=== PATIENT | male | born 1950 | race Caucasian/White ===

== ENCOUNTER 2016-10-23 10:28 | Inpatient (IN) | payer OTHER, MEDICARE ==
[~2016-10-23 10:28] MED LIST: 1-ME1LIQ PO; ADVAI250I PO; ATRO17AE INH; CLON1TAB PO; COUM5TAB PO; CYAN25003 PO; DIGO0.12 PO; FEXO180 PO; FIBE625T24 PO; FURO1TAB93 PO; GEMF600T PO; GLUC1000 PO; HYDR10SO PO; HYDR25TA35 PO; METO25 PO; OMEG5CAP PO; PACE200T4 PO; PRAV40 PO; PROT40TA PO; QUIN20TA22 PO; STOO100T PO; VITA500015 PO; VITA80005 PO; Z.0.COMMODE-3:1; Z.0.CPM; Z.0.WALKERFRONT
[2016-10-24 10:30] VITALS: BP 122/55; PULSE 58; RESP 20; TEMP 98.7; O2SAT 98
[2016-10-24] MEDS ORDERED: SODIUM CHLORID 0.9% 500 ML IV PRN (10:45)
[2016-10-24] MEDS ORDERED: CHLORHEXIDINE GLUCONATE 2 % 1 PACK (2 CLOTHS) TOPICAL PRN (10:45)
[2016-10-24] MEDS ORDERED: LACTATED RINGER'S 1000 ML IV PRN (10:45)
[2016-10-24] MEDS ORDERED: CHLORHEXIDINE GLUCONATE 4% SOLN 120 ML BTL TOPICAL SCH (10:45)
[2016-10-24] MEDS ORDERED: INSULIN HUMAN REGULAR 1,000 UNITS/10 ML VIAL SQ PRN (10:45)
[2016-10-24] MEDS ORDERED: POVIDONE IODINE 5% (ANTISEPSIS KIT) 4 APPLICATIONS EACH NARE PRN (10:45)
[2016-10-24] MEDS ORDERED: VANCOMYCIN 1000 MG/NS 250 ML (for <70 kg) IV SCH ×2 (10:45)
[2016-10-24] MEDS ORDERED: METOPROLOL TARTRATE 25 MG TAB PO PRN (10:45)
[2016-10-24] MEDS ORDERED: D32000TA PO (11:06)
[2016-10-24] MEDS ORDERED: CYAN1TAB24 PO (11:06)
[2016-10-24] MEDS ORDERED: QUIN40TA2 PO (11:06)
[2016-10-24] MEDS ORDERED: FENO160T PO (11:06)
[2016-10-24] MEDS ORDERED: FURO40TA PO (11:06)
[2016-10-24] MEDS ORDERED: VITA10006 PO (11:06)
[2016-10-24] MEDS ORDERED: IPRASOL INH (11:06)
[2016-10-24] MEDS ORDERED: HYDR-3366 PO (11:06)
[2016-10-24] MEDS ORDERED: ATOR1TAB18 PO (11:06)
[2016-10-24] MEDS ORDERED: METO50TA PO (11:06)
[2016-10-24] MEDS ORDERED: AMLO10 PO (11:06)
[2016-10-24] MEDS ORDERED: VITA80005 PO (11:06)
[2016-10-24] MEDS ORDERED: CLON0.1T PO (11:06)
[2016-10-24] MEDS ORDERED: HYDR-3801 PO (11:06)
[2016-10-24] MEDS ORDERED: LORA10TA PO (11:06)
[2016-10-24] MEDS ORDERED: DIGO0.12 PO (11:06)
[2016-10-24] MEDS ORDERED: FEXO15TA PO (11:06)
[2016-10-24] MEDS ORDERED: PACE200T PO (11:06)
[2016-10-24] MEDS ORDERED: STOO100C PO (11:06)
[2016-10-24] MEDS ORDERED: NEOM0.1S4 EACH EYE (11:06)
[2016-10-24] MEDS ORDERED: FIBE625T10 PO (11:06)
[2016-10-24] MEDS ORDERED: METF1000 PO (11:06)
[2016-10-24] MEDS ORDERED: FOLI5CAP PO (11:06)
[2016-10-24] MEDS ORDERED: PANT40TA3 PO (11:06)
[2016-10-24] MEDS ORDERED: ASPI325T PO (11:06)
[2016-10-24] MEDS ORDERED: TIZA4TAB PO (11:06)
[2016-10-24] MEDS ORDERED: CLON1TAB PO (11:06)
[2016-10-24] MEDS ORDERED: ASCO500C PO (11:06)
[2016-10-24] MEDS ORDERED: FERR1TAB58 PO (11:06)
[2016-10-24] MEDS ORDERED: FISH120014 PO (11:06)
[2016-10-24] MEDS ORDERED: ACET500C PO (11:06)
[2016-10-24] MEDS ORDERED: AMLO10TA2 PO (11:06)
[2016-10-24] MEDS ORDERED: IPRA17I INH (11:06)
[2016-10-24] MEDS ORDERED: ADVA250A INH (11:06)
[2016-10-24] MEDS ORDERED: GENTAMICIN SULFATE 80 MG/2 ML VIAL ONE (11:54)
[2016-10-24] MEDS ORDERED: PROPOFOL 200 MG/20 ML AMP IV ONE (12:00)
[2016-10-24] MEDS ORDERED: LACTATED RINGER'S 1000 ML INJ 2,000 ML IV ONE (12:00)
[2016-10-24] MEDS ORDERED: ONDANSETRON HCL 4 MG/2 ML VIAL IV PUSH ONE (12:00)
[2016-10-24] MEDS ORDERED: NEOSTIGMINE 3 MG/3 ML SYR IV ONE (12:00)
[2016-10-24] MEDS ORDERED: ePHEDrine/NS 25 MG/5 ML SYR IV ONE (12:00)
[2016-10-24] MEDS ORDERED: DEXAMETHASONE SOD PHOS 4 MG/ML VIAL ONE (12:09)
[2016-10-24] MEDS ORDERED: FAMOTIDINE 20 MG/2 ML VIAL ONE (12:09)
[2016-10-24] MEDS ORDERED: METOCLOPRAMIDE HCL 10 MG/2 ML VIAL ONE (12:09)
[2016-10-24] MEDS ORDERED: MIDAZOLAM HCL 2 MG/2 ML VIAL IV PUSH ONE (12:16)
[2016-10-24] MEDS ORDERED: MIDAZOLAM HCL 2 MG/2 ML VIAL ONE (12:18)
[2016-10-24] MEDS ORDERED: fentaNYL CITRATE 250 MCG/5 ML AMP ONE ×2 (12:51→16:11)
[2016-10-24] MEDS ORDERED: ACETAMINOPHEN/HYDROcodone 325 MG/10 MG TAB PO PRN (16:30)
[2016-10-24] MEDS ORDERED: MORPHINE SULFATE 8 MG/ML INJ IM PRN (16:30)
[2016-10-24] MEDS: LACTATED RINGER'S 1000 ML INJ 1,000 ML IV SCH (16:30)
[2016-10-24] MEDS ORDERED: SODIUM CHLORIDE 0.9% FLUSH 5 ML FLUSH IVF PRN (16:30)
[2016-10-24] MEDS ORDERED: ALUMINUM/MAGNESIUM/SIMETH 30 ML CUP PO PRN (16:30)
[2016-10-24] MEDS ORDERED: ONDANSETRON HCL 4 MG/2 ML VIAL IVP PRN (16:30)
[2016-10-24] MEDS ORDERED: Post-op Orders (for Pharmacy) MISC XX ONE (16:30)
[2016-10-24] MEDS ORDERED: FUROSEMIDE 40 MG TAB PO PRN (16:30)
[2016-10-24] MEDS ORDERED: ZOLPIDEM TARTRATE 5 MG TAB PO PRN (16:30)
--- NOTE | 2016-10-24 16:30 | HHI.PR ---
Immediate Post Op Note Procedure Date: October 24, 2016 Pre Op Diagnosis: L Hip OA; Morbid obesity Post Op Diagnosis: Same Surgeon: Anoop Rodrigez MD Emissions Engineer(s): Beatriz Galindo PA-C Procedure: L THR Complications: None Specimen(s) removed: None Estimated blood loss: 275cc Anesthesia: General Patient to: PACU Patient Condition: Good Implant/Devices: SEE IMPLANT LOG (if applicable) Date/Time of Procedure: SEE SURGICAL CARE RECORD Anoop Rodrigez MD October 24, 2016 16:30
--- NOTE | 2016-10-24 17:32 | RADRPT ---
EXAM DATE/TIME: 10/24/2016 16:54 [place] COMPARISON: No previous studies available for comparison. INDICATIONS : Hip pain. MEDICAL HISTORY : Unobtainable. SURGICAL HISTORY : Unobtainable. ENCOUNTER: Initial ACUITY: 1 day PAIN SCORE: 4/10 LOCATION: Left hip. FINDINGS/CONCLUSION: Three-view left hip demonstrates patient has a bipolar hemiarthroplasty in g ood position. There is no fracture or complication. Excellent alignment. Thompson Denton MD on October 24, 2016 at 17:18 Board Certified Radiologist. This report was verified electronically.
[2016-10-24] MEDS: metFORMIN HCL 500 MG TAB PO SCH (18:00)
[2016-10-24] MEDS: IPRATROPIUM BROMIDE 17 MCG/ACT 12.9 GM INHALER INH SCH ×2 (18:00→20:43)
[2016-10-24] MEDS ORDERED: NEOMYCIN/POLYMYX/DEXAMETH OPHT SUSP 5 ML BTL EACH EYE SCH (18:00)
[2016-10-24 18:45] VITALS: BP 172/73; PULSE 70; RESP 16; TEMP 97.5; O2SAT 98
[2016-10-24 19:45] VITALS: BP 176/77; PULSE 72; RESP 17; TEMP 98.5; O2SAT 97
[2016-10-24] MEDS: ACETAMINOPHEN/HYDROcodone 325 MG/10 MG TAB PO PRN (20:31)
[2016-10-24] MEDS: cloNIDine HCL 0.1 MG TAB PO SCH (20:31)
[2016-10-24] MEDS: FERROUS SULFATE 325 MG (65 MG ELEMENTAL IRON) TAB PO SCH (20:31)
[2016-10-24] MEDS: METOPROLOL TARTRATE 50 MG TAB PO SCH (20:32)
[2016-10-24] MEDS ORDERED: ATORVASTATIN 80 MG TAB PO SCH (21:00)
[2016-10-24] MEDS ORDERED: BUDESONIDE-FORMOTEROL 160/4.5 MCG INHALER INH SCH (21:00)
[2016-10-24] MEDS ORDERED: SODIUM CHLORIDE 0.9% FLUSH 5 ML FLUSH IVF SCH (21:00)
[2016-10-24] MEDS ORDERED: AMIODARONE 200 MG TAB PO SCH (21:00)
[2016-10-24] MEDS ORDERED: clonazePAM 1 MG TAB PO SCH (21:00)
[2016-10-24] MEDS: hydrALAZINE HCL 100 MG TAB PO SCH (21:05)
[2016-10-25] VITALS: BP 123/59; PULSE 75; RESP 17; TEMP 98.2; O2SAT 94
[2016-10-25] MEDS: ACETAMINOPHEN/HYDROcodone 325 MG/10 MG TAB PO PRN ×2 (02:21→08:10)
[2016-10-25 04:00] VITALS: BP 121/57; PULSE 61; RESP 17; TEMP 97.8; O2SAT 94
[2016-10-25] MEDS: LACTATED RINGER'S 1000 ML INJ 1,000 ML IV SCH (05:02)
[2016-10-25 05:38] LABS: INTERNATIONAL NORMALIZED RATIO 1.3 RATIO; PROTHROMBIN TIME - PATIENT 14.4 SEC (9.8-11.6)
--- NOTE | 2016-10-25 07:08 | PD.ORT.PN ---
Subjective Subjective Remarks pt doing well, ready to go home today no chest pain, no SOB Objective Vitals Vital Signs Date Time Temp Pulse Resp B/P Pulse Ox O2 Delivery O2 Flow Rate FiO2 10/25/16 04:00 97.8 61 17 121/57 94 10/25/16 03:27 18 10/25/16 00:00 98.2 75 17 123/59 94 10/24/16 19:45 98.5 72 17 176/77 97 10/24/16 18:45 97.5 70 16 172/73 98 10/24/16 17:44 98.1 68 20 151/70 98 Nasal Cannula 3 10/24/16 17:30 68 20 151/70 98 Nasal Cannula 3 10/24/16 17:15 65 20 150/67 96 Nasal Cannula 3 10/24/16 17:00 70 20 160/66 95 Nasal Cannula 3 10/24/16 16:45 67 20 149/57 96 Nasal Cannula 3 10/24/16 16:30 70 20 153/51 96 Nasal Cannula 3 10/24/16 16:15 70 20 157/68 94 Nasal Cannula 3 10/24/16 16:03 98.3 75 20 165/71 99 Nasal Cannula 3 10/24/16 10:30 98.7 58 20 122/55 98 I/O 10/24/16 10/24/16 10/24/16 10/25/16 10/25/16 10/25/16 07:00 15:00 23:00 07:00 15:00 23:00 Intake Total 2692 ml 240 ml Output Total 475 ml Balance 2217 ml 240 ml Intake Oral 240 ml 240 ml IV Total 652 ml Other 1800 ml Output Urine Total 200 ml Estimated Blood Loss 275 ml # Voids 3 # Bowel Movements 0 0 Other Results Laboratory Tests Test 10/25/16 04:57 Prothrombin Time 14.4 SEC (9.8-11.6) Prothromb Time International 1.3 RATIO Ratio Objective Remarks seen by Dr. Anoop Rodrigez left hip dressing dry and intact no calf tenderness, no homans +NVI Assessment & Plan Assessment and Plan POD # 1 s/p L TARIQ low dose coumadin DVT prop PT-WBAT patient doing so well, minimal pain, decision made this morning that patient may be discharge today instead of tomorrow discharge home today [facility] Beatriz Galindo October 25, 2016 07:08
[2016-10-25] MEDS ORDERED: WALKER WHEELS/F1 MIS (07:10)
[2016-10-25] MEDS ORDERED: BEDSIDE COMMODE1 MI1 (07:10)
--- NOTE | 2016-10-25 07:11 | HHI.FF ---
Face to Face Verification Diagnosis: (1) Osteoarthritis of left hip Physical Therapy Gait training Hip: Total hip, Protocol: Left, Posterior hip precautions Right LE Weight Bearing: WB as tolerated Left LE Weight Bearing: WB as tolerated Nursing RN Days per Week: 3 x Week(s): 4 Nursing: Dressing changes (clean incision with alcohol and apply dry sterile dressing ) Additional Instructions Pt/INR q Friday and , call/text results to Beatriz NICHOLS [phone] Goal INR 1.5-1.8 I have seen patient Markie Aranda on 10/25/16. My clinical findings support the need for the requested home health care services because: High risk of falls I certify that my clinical findings support that this patient is homebound because: Post-op weakness Beatriz Galindo October 25, 2016 07:11
[2016-10-25 07:43] VITALS: BP 161/63; PULSE 56; RESP 18; TEMP 97.1; O2SAT 95
[2016-10-25] MEDS: cloNIDine HCL 0.1 MG TAB PO SCH (08:03)
[2016-10-25] MEDS: metFORMIN HCL 500 MG TAB PO SCH (08:05)
[2016-10-25] MEDS: hydrALAZINE HCL 100 MG TAB PO SCH (08:06)
[2016-10-25] MEDS: METOPROLOL TARTRATE 50 MG TAB PO SCH (08:06)
[2016-10-25] MEDS: FERROUS SULFATE 325 MG (65 MG ELEMENTAL IRON) TAB PO SCH (08:07)
[2016-10-25] MEDS ORDERED: FENOFIBRATE 145 MG TAB PO SCH (09:00)
[2016-10-25] MEDS ORDERED: DIGOXIN 0.125 MG TAB PO SCH (09:00)
[2016-10-25] MEDS ORDERED: LISINOPRIL 20 MG TAB PO SCH (09:00)
[2016-10-25] MEDS ORDERED: LORATADINE 10 MG TAB PO SCH ×2 (09:00)
[2016-10-25] MEDS ORDERED: PANTOPRAZOLE SOD 40 MG DELAYED RELEASE TAB PO SCH (09:00)
[2016-10-25 10:45] VITALS: O2SAT 93
--- NOTE | 2016-10-25 11:54 | PD.CONS ---
HPI Service [facility] Consult Requested By Orthopedic surgery Reason for Consult Medical management Primary Care Physician Tre Potter MD Diagnoses: History of Present Illness 65-year-old male with a history of diabetes type 2, atrial fibrillation, severe left Hip OA who despite medical management including injection, NSAIDs, physical therapy continued to have severe left hip pain affecting his daily living of activity including ambulation, was taken to the or on 10/24/16 and underwent left total hip arthroplasty. Patient is seen in his room and denies any chest pain or shortness of breath. He was able to ambulate with PT today and denies any significant left hip pain. Vitals stable. Review of Systems Except as stated in HPI: all other systems reviewed are Neg Past Family Social History Allergies: Coded Allergies: Penicillin (Verified Allergy, Severe, 10/24/16) Latex (Unverified Allergy, Intermediate, RASH,BLISTERS, 10/24/16) Adhesives (Unverified Adverse Reaction, Intermediate, REMOVES SKIN, ) PT CAN HAVE PAPER TAPE Past Medical History left Hip OA Diabetes type 2 Atrial fibrillation Morbid obesity Hypertension CAD History of TIAs 2 Past Surgical History Status post left hip arthroplasty 10/24/16 CABG 4 Bilateral knee surgeries Left CEA Reported Medications See EMR Family History Father from complication of lung cancer Social History He denies tobacco, illicit drug however reports social alcohol use. Physical Exam Vital Signs Vital Signs Date Time Temp Pulse Resp B/P Pulse Ox O2 Delivery O2 Flow Rate FiO2 10/25/16 10:45 93 10/25/16 07:43 97.1 56 18 161/63 95 10/25/16 04:00 97.8 61 17 121/57 94 10/25/16 03:27 18 10/25/16 00:00 98.2 75 17 123/59 94 10/24/16 19:45 98.5 72 17 176/77 97 10/24/16 18:45 97.5 70 16 172/73 98 10/24/16 17:44 98.1 68 20 151/70 98 Nasal Cannula 3 10/24/16 17:30 68 20 151/70 98 Nasal Cannula 3 10/24/16 17:15 65 20 150/67 96 Nasal Cannula 3 10/24/16 17:00 70 20 160/66 95 Nasal Cannula 3 10/24/16 16:45 67 20 149/57 96 Nasal Cannula 3 10/24/16 16:30 70 20 153/51 96 Nasal Cannula 3 10/24/16 16:15 70 20 157/68 94 Nasal Cannula 3 10/24/16 16:03 98.3 75 20 165/71 99 Nasal Cannula 3 Physical Exam GENERAL: This is a well-nourished, well-developed patient, in no apparent distress. SKIN: No rashes, ecchymoses or lesions. Cool and dry. HEAD: Atraumatic. Normocephalic. No temporal or scalp tenderness. EYES: Pupils equal round and reactive. Extraocular motions intact. No scleral icterus. No injection or drainage. ENT: Nose without bleeding, purulent drainage or septal hematoma. Throat without erythema, tonsillar hypertrophy or exudate. Uvula midline. Airway patent. NECK: Trachea midline. No JVD or lymphadenopathy. Supple, nontender, no meningeal signs. CARDIOVASCULAR: Regular rate and rhythm without murmurs, gallops, or rubs. RESPIRATORY: Clear to auscultation. Breath sounds equal bilaterally. No wheezes , rales, or rhonchi. GASTROINTESTINAL: Abdomen soft, non-tender, nondistended. No hepato-splenomegaly , or palpable masses. No guarding. MUSCULOSKELETAL: Extremities without clubbing, cyanosis, or edema. left Hip repair-neurovascular intact NEUROLOGICAL: Awake and alert. Cranial nerves II through XII intact. Motor and sensory grossly within normal limits. Five out of 5 muscle strength in all muscle groups. Normal speech. Laboratory Laboratory Tests Test 10/25/16 04:57 Prothrombin Time 14.4 Prothromb Time International 1.3 Ratio Imaging Last Impressions Hip and Pelvis X-Ray 10/24/16 0000 Signed Impressions: Service Date/Time: October 16:54 - CONCLUSION: Three-view left hip demonstrates patient has a bipolar hemiarthroplasty in good position. There is no fracture or complication. Excellent alignment. Thompson Denton MD Assessment and Plan Assessment and Plan 65-year-old man with 1-Status post left total hip arthroplasty 10/24/16: Management per orthopedic surgery, continue current pain management. PT to treat and eval. Coumadin 2-Diabetes type 2, atrial fibrillation, hypertension, CAD,, hyperlipidemia other medical conditions: Continue outpatient medications 3-DVT prophylaxis: Coumadin for DVT prophylaxis Thank you for this consultation and discharge per orthopedic surgery Code Status Full code Discussed Condition With Patient, Bryce Riley MD October 25, 2016 11:54
[2016-10-25 12:30] VITALS: BP 99/51; PULSE 59; RESP 18; TEMP 97.9; O2SAT 90
--- NOTE | 2016-10-25 13:36 | MP ---
cc: DANIELLE WILBURN,PAT RODRIGEZ,MOSES Patel M.D. DATE OF SURGERY 10/24/2016 PREOPERATIVE DIAGNOSIS 1. Left hip severe osteoarthritis 2. Morbid obesity POSTOPERATIVE DIAGNOSIS 1. Left hip severe osteoarthritis 2. Morbid obesity PROCEDURE Left total hip arthroplasty SURGEON Antoine Rodrigez MD ASSESSMENT Beatriz Galindo PA-C SPECIMENS None ESTIMATED BLOOD LOSS 275 cc COMPLICATIONS None ANESTHESIA General DRAINS None CONDITION Stable PLAN OF ACTIVITY Per orders PROCEDURE My assistant elementary teacher Beatriz Galindo PA-C was present for the entire surgical case. She was medically necessary for the entire case because of the complexity of the case and to facilitate the performance of the procedure. The SQL SERVER DBA at the back table was not a skill set to manipulate the instruments e.g. the multiple types of retractors, trial implants, and permanent implants. The patient was brought into the operating room, had satisfactory general endotracheal anesthesia by the Department of Anesthesia. A considerable amount time and care was made to protect all pressure points because of the patient's morbid obesity. The left hip and lower extremity down to including the toes were all prepped, draped in the usual sterile manner. A small posterolateral hip exposure was made and surgical exposure was made. Dissection was carried through the skin and subcutaneous tissue. The fascia victoriano and gluteus maximum was incised in line with the skin incision. Charnley retractor was placed in the wound in order to allow better exposure. Great care was made to protect the sciatic nerve. The short external rotators were removed as a group. Capsulotomy was performed. The hip was dislocated posteriorly. The patient was found to have severe osteoarthritis involving the hip joint. Osteotomy on the neck was made at the appropriate level. Exposure to the acetabulum was made. The acetabular capsule and labrum was surgically excised. Using hemispherical reamers, the acetabulum was prepared initially deepening the cup and widening the cup down to the subchondral plate. A 50 mm bicentric cup Press-Fit manner was found to be stable and satisfactory. Attention brought to the femur. Using the Biomet taper lock system it was sequentially broached to a #10 broach. Reduction was made with an -3 neck, 28 mm ball. The hip was reduced. The patient found to have satisfactory limb lengths, satisfactory stability of the hip and satisfactory range of motion. The hip was again dislocated posteriorly and all trial components were removed. The wound was irrigated with copious amounts of sterile saline antibiotic solution. The wound itself was dry. Using the Biomet taper lock system, a #10 standard offset stem placed in position flexing it to 15 degrees anteversion. The patient had an excellent "fit and fill" of the prosthesis. A -3 neck, 28 mm ball ceramic head was then assembled onto the trunnion. The hip was reduced. Again, the patient found to have satisfactory stability of the hip, satisfactory limb lengths and satisfactory range of motion. The wound was irrigated again with copious amounts of sterile saline antibiotic solution. The wound itself was dry. The short external rotators were repaired back to the greater trochanter through drill holes using #2 Tycron suture. The fascia victoriano and gluteus baltazar was closed with #2 Tycron sutures. Subcutaneous tissues closed in layers with 0-Vicryl and 2-0 Vicryl. Skin was approximated with running subcuticular 2-0 nylon stitch. The instrument, sponge and sharp counts were correct after the operation. The patient tolerated the procedure well and arrived in the recovery room in stable and satisfactory condition. MD MILLI Bee/CESILIA /4:22 PM /1:22 PM
[2016-10-25] MEDS ORDERED: WARFARIN SOD 5 MG TAB PO SCH (16:00)
[2016-10-25] MEDS ORDERED: DOCUSATE SODIUM 100 MG CAP PO SCH (21:00)
[2016-10-26] MEDS ORDERED: METO25TA3 PO (19:40)
[2016-10-26] MEDS ORDERED: FURO1TAB62 PO (19:40)
[2016-10-26] MEDS ORDERED: FOLI1TAB4 PO (19:40)
[2016-10-26] MEDS ORDERED: FERR325T PO (19:44)
[2016-10-26] MEDS ORDERED: D 50CAP PO (19:51)
[2016-10-26] MEDS ORDERED: CYAN1CAP PO (19:51)
[2016-10-26] MEDS ORDERED: CLON0.1T PO ×2 (19:53→19:54)
--- NOTE | 2016-11-08 09:00 | HHI.DS ---
Discharge Summary Admission Date October 24, 2016 at 09:46 Discharge Date: October 25, 2016 Admitting Diagnosis Left hip osteoarthritis Diagnosis: (1) Osteoarthritis of left hip Diagnosis: Principal Procedures L TARIQ Brief History This is a 66 year old male patient who presents with the following history. Patient has had left hip and groin pain for over one year. He uses a cane for assistive ambulation. He is unable to take NSAIDs due to his heart condition. He has failed physical therapy and lateral hip steroid injections. He states the pain has progressed recently and he is having a difficult time performing his ADLs and walking due to the hip pain. He has elected to proceed forward with surgical intervention. Imaging x-rays of the left hip show osteoarthritis PE at Discharge seen by Dr. Anoop Rodrigez left hip dressing dry and intact no calf tenderness, no homans +NVI Hospital Course Patient underwent satisfactory anaesthesia by the dept of anaesthesia. He underwent left total hip arthroplasty on the date of admission. He was treated with low dose coumadin night before procedure and will be treated with low dose coumadin for four weeks post-operatively. He did well following the procedure. He was started with full weight bearing ambulation on pod #1. He was also seen and followed by medical during his stay and was treated with knee high TEDs and sequentials. He progressed well and was discharged home with [facility] for further nursing and PT on pod #1. Pt Condition on Discharge: Stable Discharge Disposition: Disch w/ Home Health Serv Discharge Instructions Diet Instructions: Coumadin (Warfarin) Diet Activities You Can Perform: Weight Bearing as Beatriz Limon Nov 08, 2016 09:00
== END 2016-10-25 17:05 | disposition home health service (06) | DRG 470 ==
LOC: HSDI 10-24 09:46 → N06B 10-24 18:01
PROVIDERS: ADMIT Orthopaedic Surgery Orthopaedic Surgery of the Spine; ATTEND Orthopaedic Surgery Orthopaedic Surgery of the Spine
PROC: 0SRB0JA Replacement of Left Hip Joint with Synthetic Substitute, Uncemented, Open Approach (ICD-10-PCS; principal; 2016-10-24 13:42)
DX: M16.12 Unilateral primary osteoarthritis, left hip (principal); E11.22 Type 2 diabetes mellitus with diabetic chronic kidney disease; I48.91 Unspecified atrial fibrillation; I12.9 Hypertensive chronic kidney disease with stage 1 through stage 4 chronic kidney disease, or unspecified chronic kidney disease; N18.2 Chronic kidney disease, stage 2 (mild); I25.10 Atherosclerotic heart disease of native coronary artery without angina pectoris; E78.5 Hyperlipidemia, unspecified; Z95.1 Presence of aortocoronary bypass graft; E66.01 Morbid (severe) obesity due to excess calories; K21.9 Gastro-esophageal reflux disease without esophagitis; G47.33 Obstructive sleep apnea (adult) (pediatric)
CPT/HCPCS: 36415; 73501; 85610; 86850; 86900; 86901; 86920; 94150; C1776; J0690; J1100; J1580; J2250; J2405; J2710; J2765; J3010; J3370; J7050; J7120; L1830

== ENCOUNTER 2016-10-26 18:19 | Inpatient (IN) | payer OTHER, MEDICARE ==
[~2016-10-26] VITALS: Ht 162.6 cm; Wt 117.8 kg
[2016-10-26] VITALS (8 sets, daily range): BP systolic 104–164; BP diastolic 57–82; PULSE 83–138; RESP 20–26; TEMP 99.1–99.5; O2SAT 93–96
[~2016-10-26 18:19] MED LIST changes: -1-ME1LIQ PO; +ADVA250A INH; -ADVAI250I PO; +AMLO10 PO; +AMLO10TA2 PO; +ASCO500C PO; +ATOR1TAB18 PO; -ATRO17AE INH; +BEDSIDE COMMODE1 MI1; +CLON0.1T PO; -COUM5TAB PO; +CYAN1TAB24 PO; -CYAN25003 PO; +D32000TA PO; +FENO160T PO; +FERR1TAB58 PO; +FEXO15TA PO; -FEXO180 PO; +FIBE625T10 PO; -FIBE625T24 PO; +FOLI5CAP PO; -FURO1TAB93 PO; +FURO40TA PO; -GEMF600T PO; -GLUC1000 PO; +HYDR-3366 PO; +HYDR-3801 PO; -HYDR10SO PO; -HYDR25TA35 PO; +IPRA17I INH; +IPRASOL INH; +LORA10TA PO; +METF1000 PO; -METO25 PO; +METO50TA PO; +NEOM0.1S4 EACH EYE; -OMEG5CAP PO; +PACE200T PO; -PACE200T4 PO; +PANT40TA3 PO; -PRAV40 PO; -PROT40TA PO; -QUIN20TA22 PO; +QUIN40TA2 PO; +STOO100C PO; -STOO100T PO; +TIZA4TAB PO; +VITA10006 PO; -VITA500015 PO; +WALKER WHEELS/F1 MIS; -Z.0.COMMODE-3:1; -Z.0.CPM; -Z.0.WALKERFRONT
[2016-10-26] MEDS ORDERED: SODIUM CHLORIDE 0.9% FLUSH 10 ML FLUSH IVF PRN (18:45)
--- NOTE | 2016-10-26 18:47 | PD ---
HPI Chief Complaint: Cardiac Complaint Time Seen by Provider: 18:45 Travel History International Travel<30 days: No Contact w/Intl Traveler<30days: No Traveled to known affect area: No History of Present Illness HPI This is a 65-year-old male with left hip arthroplasty performed by Dr. Anoop Rodrigez on October 24. He presents with his for evaluation of lethargy, fever , rapid heart rate. He does have a history of atrial fibrillation. Today he seems to be more lethargic and the noted that his heart rate was high this evening. In addition he had a fever today of 101.6 at 2 PM which prompted evaluation. The patient has been complaining of left hip pain since the surgery. He denies any chest pain, abdominal pain, nausea or vomiting. Some dyspnea. He was reportedly started on Coumadin recently. He takes metoprolol for rate control. He is also on amiodarone and digoxin. PFSH Past Medical History Hx Anticoagulant Therapy: Yes (coumadin) Arthritis: Yes Asthma: Yes Anxiety: Yes Depression: No Heart Rhythm Problems: Yes (ATRIAL FIBRILLATION) Cancer: No Cardiovascular Problems: Yes (afib, ID, quad bypass) High Cholesterol: Yes Congestive Heart Failure: No COPD: Yes Cerebrovascular Accident: Yes (x 2) Diabetes: Yes (metformin) Endocrine: Yes Genitourinary: Yes Hepatitis: No Hiatal Hernia: No Hypertension: Yes Immune Disorder: No Kidney Stones: Yes (PASSED ABOUT 15 YEARS) Musculoskeletal: Yes (ARTHRITIS) Neurologic: Yes (TIA X 2 2011, 2013) Psychiatric: Yes (CLAUSTROPHOBIC) Reproductive: No Seizures: No Sleep Apnea: Yes Thyroid Disease: No Past Surgical History Abdominal Surgery: Yes (UMBILICAL HERNIA 20 YRS AGO) AICD: No Cardiac Surgery: Yes (QUADRUPLE BYPASS 05/26/12, CAROTID ARTERY 07/27/12) Eye Surgery: Yes (LEFT CATARACT IOL) Joint Replacement: Yes (L TOTAL KNEE, RIGHT TOTAL KNEE) Pacemaker: No Social History Alcohol Use: Yes (BEER OCCAS) Tobacco Use: No Substance Use: No Allergies-Medications (Allergen,Severity, Reaction): Coded Allergies: Penicillin (Verified Allergy, Severe, 10/26/16) Latex (Unverified Allergy, Intermediate, RASH,BLISTERS, 10/26/16) Adhesives (Unverified Adverse Reaction, Intermediate, REMOVES SKIN, ) PT CAN HAVE PAPER TAPE Reported Meds & Prescriptions Reported Meds & Active Scripts Active Reported Clonidine (Clonidine HCl) 0.1 Mg Tab 0.05 Mg PO DAILY @ 2000 Clonidine (Clonidine HCl) 0.1 Mg Tab 0.05 Mg PO DAILY @ 1500 D 5000 (Cholecalciferol) 5,000 Unit Cap 5,000 Units PO BID B-12 (Cyanocobalamin) 5,000 Mcg Cap 5,000 Mcg PO BID Ferrous Sulfate 325 Mg Tab 325 Mg PO BID Lasix (Furosemide) 20 Mg Tab 20 Mg PO DAILY PRN Folate (Folic Acid) 1 Mg Tab 1 Mg PO AC DINNER Metoprolol Tartrate 25 Mg Tab 25 Mg PO BID Stool Softener (Docusate Sodium) 100 Mg Cap 100 Mg PO DAILY PRN Fiber (Calcium Polycarbophil) 625 Mg Tab 625 Mg PO AC DINNER PRN Vitamin A 8,000 Unit Tab 8,000 Units PO DAILY Vitamin C (Ascorbic Acid) 500 Mg Cap 500 Mg PO AC DINNER Ypvdvanb-Vamhneqag-Ujbrfkjduxjgi Opth Drops 3.5-10,000-0.1 Mg-Units-% Susp 1 Drop EACH EYE TID Tizanidine (Tizanidine HCl) 4 Mg Tab 8 Mg PO TID PRN Quinapril (Quinapril HCl) 40 Mg Tab 40 Mg PO DAILY Pantoprazole (Pantoprazole Sodium) 40 Mg Tab 40 Mg PO HS Pacerone (Amiodarone HCl) 200 Mg Tab 200 Mg PO DAILY Metformin (Metformin HCl) 1,000 Mg Tab 1,000 Mg PO BIDPC With meals [place] (Hydrocodone-Acetaminophen) 10-325 Mg Tab 1-2 Tab PO Q6HR PRN Hydralazine (Hydralazine HCl) 100 Mg Tab 100 Mg PO TID Take with meals Fenofibrate 160 Mg Tab 160 Mg PO HS Furosemide 40 Mg Tab 40 Mg PO DAILY Digoxin 0.125 Mg Tab 0.125 Mg PO DAILY Clonazepam 1 Mg Tab 1 Mg PO DAILY PRN Clonidine (Clonidine HCl) 0.1 Mg Tab 0.1 Mg PO DAILY @ 0800 Atorvastatin (Atorvastatin Calcium) 80 Mg Tab 80 Mg PO HS Allyssa Allergy (Fexofenadine HCl) 180 Mg Tab 180 Mg PO DAILY PRN Amlodipine (Amlodipine Besylate) 10 Mg Tab 10 Mg PO HS Duoneb (Ipratropium-Albuterol Neb) 0.5-2.5 Mg/3 Ml Neb 1 Nebule INH Q8HR NEB PRN Atrovent HFA 12.9 GM Inh (Ipratropium Reading) 17 Mcg/Act Aer 2 Puff INH QID Advair Diskus Inh (Fluticasone-Salmeterol Inh) 250-50 Mcg/Blist Aer 1 Puff INH BID Rinse mouth after use. Loratadine 10 Mg Tab 10 Mg PO DAILY Review of Systems Except as stated in HPI: all other systems reviewed are Neg Physical Exam Narrative GENERAL: Well-developed well-nourished male in no acute distress. Answering questions appropriately. SKIN: Warm and dry. Examination of the left hip surgical wound reveals no wound dehiscence, drainage or erythema. HEAD: Atraumatic. Normocephalic. EYES: Pupils equal and round. No scleral icterus. No injection or drainage. ENT: No nasal bleeding or discharge. Mucous membranes pink and moist. NECK: Trachea midline. No JVD. CARDIOVASCULAR: Regular rate and rhythm. No murmur appreciated. RESPIRATORY: No accessory muscle use. Clear to auscultation. Breath sounds equal bilaterally. GASTROINTESTINAL: Abdomen soft, non-tender, nondistended. Hepatic and splenic margins not palpable. MUSCULOSKELETAL: No obvious deformities. No lower extremity edema. NEUROLOGICAL: Awake and alert. No obvious cranial nerve deficits. Motor grossly within normal limits. Normal speech. PSYCHIATRIC: Appropriate mood and affect; insight and judgment normal. Data Data Last Documented VS Vital Signs Date Time Temp Pulse Resp B/P Pulse Ox O2 Delivery O2 Flow Rate FiO2 10/26/16 19:55 115 26 146/73 94 Nasal Cannula 2 10/26/16 19:00 99.1 Orders Electrocardiogram (10/26/16 ) Complete Blood Count With Diff (10/26/16 18:38) Basic Metabolic Panel (Bmp) (10/26/16 18:38) B-Type Natriuretic Peptide (10/26/16 18:38) Act Partial Throm Time (Ptt) (10/26/16 18:38) Prothrombin Time / Inr (Pt) (10/26/16 18:38) Troponin I (10/26/16 18:38) Arterial Blood Gas (Abg) (10/26/16 18:38) Iv Access Insert/Monitor (10/26/16 18:38) Ecg Monitoring (10/26/16 18:38) Oximetry (10/26/16 18:38) Oxygen Administration (10/26/16 18:38) Chest, Single Ap (10/26/16 18:38) Ct Pulmonary Angiogram (10/26/16 18:38) Sodium Chloride 0.9% Flush (Ns Flush) (10/26/16 18:45) Lactic Acid Sepsis Protocol (10/26/16 18:45) Blood Culture (10/26/16 18:45) Diltiazem Inj (Cardizem Inj) (10/26/16 19:00) Metoprolol Tartrate (Lopressor) (10/26/16 19:00) Digoxin (10/26/16 18:50) Urinalysis - C+S If Indicated (10/26/16 20:01) Iohexol 350 Inj (Omnipaque 350 Inj) (10/26/16 20:35) Vital Signs (Adult) Q15MX4,Q4H (10/26/16 20:40) Exceptional Children Teacher Assistant / Telemetry RAYMOND.Q8H (10/26/16 20:40) Cardiac Rhythm RAYMOND.Q8H (10/26/16 20:40) Notify Dr: Other (10/26/16 20:40) Diltiazem Inj (Cardizem Inj) (10/26/16 20:45) Vancomycin Inj (Vancomycin Inj) (10/26/16 20:45) Piperacil-Tazo 3.375 Gm Premix (Zosyn 3. (10/26/16 20:45) Sodium Chlorid 0.9% 500 Ml Inj (Ns 500 M (10/26/16 21:00) Admit Order (Ed Use Only) (10/26/16 21:03) Labs Laboratory Tests Test 10/26/16 10/26/16 10/26/16 18:50 18:54 20:00 White Blood Count 14.4 TH/MM3 Red Blood Count 3.59 MIL/MM3 Hemoglobin 11.2 GM/DL Hematocrit 35.0 % Mean Corpuscular Volume 97.6 FL Mean Corpuscular Hemoglobin 31.3 PG Mean Corpuscular Hemoglobin 32.1 % Concent Red Cell Distribution Width 14.4 % Platelet Count 256 TH/MM3 Mean Platelet Volume 8.6 FL Neutrophils (%) (Auto) 81.2 % Lymphocytes (%) (Auto) 9.5 % Monocytes (%) (Auto) 8.4 % Eosinophils (%) (Auto) 0.5 % Basophils (%) (Auto) 0.4 % Neutrophils # (Auto) 11.7 TH/MM3 Lymphocytes # (Auto) 1.4 TH/MM3 Monocytes # (Auto) 1.2 TH/MM3 Eosinophils # (Auto) 0.1 TH/MM3 Basophils # (Auto) 0.1 TH/MM3 CBC Comment DIFF FINAL Differential Comment Prothrombin Time 15.3 SEC Prothromb Time International 1.4 RATIO Ratio Activated Partial 38.0 SEC Thromboplast Time Sodium Level 137 MEQ/L Potassium Level 4.3 MEQ/L Chloride Level 104 MEQ/L Carbon Dioxide Level 24.2 MEQ/L Anion Gap 9 MEQ/L Blood Urea Nitrogen 16 MG/DL Creatinine 1.17 MG/DL Estimat Glomerular Filtration 62 ML/MIN Rate Random Glucose 146 MG/DL Lactic Acid Level 1.8 mmol/L Calcium Level 9.1 MG/DL Troponin I LESS THAN 0.02 NG/ML B-Type Natriuretic Peptide 133 PG/ML Digoxin Level 0.5 NG/ML Blood Gas Puncture Site RT RADIAL Blood Gas Patient Temperature 98.6 Blood Gas HCO3 23 mmol/L Blood Gas Base Excess -0.7 mmol/L Blood Gas Oxygen Saturation 92 % Arterial Blood pH 7.44 Arterial Blood Partial 34 mmHg Pressure CO2 Arterial Blood Partial 71 mmHG Pressure O2 Arterial Blood Oxygen Content 14.1 Vol % Arterial Blood 0.7 % Carboxyhemoglobin Arterial Blood Methemoglobin 0.3 % Blood Gas Hemoglobin 10.9 G/DL Oxygen Delivery Device NASAL CANNULA Blood Gas Ventilator Setting 3 Urine Color YELLOW Urine Turbidity CLEAR Urine pH 5.5 Urine Specific [place] 1.017 Urine Protein 30 mg/dL Urine Glucose (UA) TRACE mg/dL Urine Ketones NEG mg/dL Urine Occult Blood NEG Urine Nitrite NEG Urine Bilirubin NEG Urine Urobilinogen LESS THAN 2.0 MG/DL Urine Leukocyte Esterase NEG Urine RBC LESS THAN 1 /hpf Urine WBC LESS THAN 1 /hpf Urine Mucus FEW /lpf Microscopic Urinalysis Comment CULT NOT INDICATED MDM Medical Decision Making Medical Screen Exam Complete: Yes Emergency Medical Condition: Yes Medical Record Reviewed: Yes Interpretation(s) CBC WBC 14.4 bnp 133 Differential Diagnosis Pulmonary embolism, pneumonia, postoperative infection, cellulitis, bacteremia, atrial fibrillation with RVR Narrative Course 65-year-old male with known history of atrial fibrillation presents after left hip hemiarthroplasty on October 24. He has been having lethargy and fever today. On initial examination he is tachycardic, age or fibrillation with RVR, oxygen saturation 94% on room air. Plan is for basic lab work, blood cultures, chest x -ray. Given tachycardia, recent orthopedic operation, low oxygen saturation, CT pulmonary injury was been ordered. He will be given IV diltiazem as well as oral metoprolol. The patient has been reevaluated and his heart rate continues to be in the 110s therefore he'll be started on diltiazem drip. Small bolus fluid has been initiated. Broad-spectrum antibiotics has been initiated. The patient will be admitted. Discussed with my attending who agrees with care. Diagnosis Primary Impression: Postoperative fever Additional Impressions: Atrial fibrillation with RVR Lethargy Sepsis Qualified Code: A41.9 - Sepsis, due to unspecified organism Admitting Information Admitting Physician Requests: Admit Sathya Gaspar October 26, 2016 18:47
--- NOTE | 2016-10-26 18:56 | PD ---
Data Data Last Documented VS Vital Signs Date Time Temp Pulse Resp B/P Pulse Ox O2 Delivery O2 Flow Rate FiO2 10/26/16 18:42 20 96 Room Air 10/26/16 18:40 138 127/82 2 10/26/16 18:21 99.5 Orders Electrocardiogram (10/26/16 ) Complete Blood Count With Diff (10/26/16 18:38) Basic Metabolic Panel (Bmp) (10/26/16 18:38) B-Type Natriuretic Peptide (10/26/16 18:38) Act Partial Throm Time (Ptt) (10/26/16 18:38) Prothrombin Time / Inr (Pt) (10/26/16 18:38) Troponin I (10/26/16 18:38) Arterial Blood Gas (Abg) (10/26/16 18:38) Iv Access Insert/Monitor (10/26/16 18:38) Ecg Monitoring (10/26/16 18:38) Oximetry (10/26/16 18:38) Oxygen Administration (10/26/16 18:38) Chest, Single Ap (10/26/16 18:38) Ct Pulmonary Angiogram (10/26/16 18:38) Sodium Chloride 0.9% Flush (Ns Flush) (10/26/16 18:45) Lactic Acid Sepsis Protocol (10/26/16 18:45) Blood Culture (10/26/16 18:45) Digoxin (10/26/16 18:47) MDM Supervised Visit with STEVEN: Yes Narrative Course I, Dr. Enriquez, have reviewed the advance practice practioner's documentation and am in agreement, met with the patient face to face, made the diagnosis, and the medical decision making was done by me. *My assessment and Findings: 65-year-old male postoperative day 2 from left total hip arthroplasty for osteoarthritis by Dr. Doran here with complaint of lethargy, fever and rapid heart rate at home. Increase with large per since yesterday evening, temp of 101.6 at home today, medicated with Tylenol per . Home health nurse noted patient to be tachycardic, history of atrial fibrillation, states that the wound on the left hip looks good. Patient feels slightly short of breath. On exam, patient is somewhat ill-appearing, fatigued and with minimal respiratory distress. Morbid obesity so cardiopulmonary examination is limited, though no obvious rouse. Obese abdomen , soft. The left hip wound is clean dry and intact without erythema, 1+ BLE edema, symmetric. Temp 99.5 here, tachycardic with heart rate in the 130s, regular rhythm. Differential includes arrhythmia, electrolyte abnormality, symptomatic anemia, sepsis, bacteremia, wound infection, PE. Twelve-lead EKG shows A. fib with RVR without any evidence of ischemic changes. Patient was given diltiazem, metoprolol for A. fib with RVR. Laboratory workup, chest x- ray and CT pulmonary angiogram are pending. Patient will ultimately require admission. Critical Care Narrative Aggregate critical care time was 35 minutes. Time to perform other separately billable procedures was not included in the critical care time. My time did not include minutes spent treating any other patients simultaneously or on activities that did not directly contribute to the patient's treatment. The services I provided to this patient were to treat and/or prevent clinically significant deterioration that could result in: Cardiopulmonary decompensation, , disability I provided critical care services requiring my management, as noted below: Chart data review, documentation time, medication orders and management, vital sign assessments/reviewing monitor data, ordering and reviewing lab tests, ordering and interpreting/reviewing x-rays and diagnostic studies, care of the patient and discussion of the patient with the admitting physicians. Sole Enriquez MD October 26, 2016 18:56
[2016-10-26 18:58] LABS: BLOOD GAS BASE EXCESS -0.7 mmol/L (-2-2); BLOOD GAS CARBOXYHEMOGLOBIN 0.7 % (0-4); BLOOD GAS HCO3 23 mmol/L (22-26); BLOOD GAS METHEMOGLOBIN 0.3 % (0-2); BLOOD GAS O2 HGB SATURATION 92 % (90-100); BLOOD GAS OXYGEN CONTENT 14.1 Vol % (12.0-20.0); BLOOD GAS PCO2 34 mmHg (38-42); BLOOD GAS PO2 71 mmHG (61-120); BLOOD GAS TOTAL HGB 10.9 G/DL (12.0-16.0); CRITICAL VALUE NO; DRAW SITE RT RADIAL; NUMBER OF ARTERIAL PUNCTURES 1; OXYGEN DEVICE NASAL CANNULA; STAT YES; TEMP CORR TO 98.6; ULNAR PULSE PRESENT; VENT SETTINGS 3
[2016-10-26] MEDS ORDERED: DILTIAZEM HCL 25 MG/5 ML VIAL IV ONE (19:00)
[2016-10-26] MEDS ORDERED: METOPROLOL TARTRATE 50 MG TAB PO ONE (19:00)
[2016-10-26 19:13] LABS: AUTOMATED NEUTROPHIL # 11.7 TH/MM3 (1.8-7.7); BASOPHIL # 0.1 TH/MM3 (0-0.2); BASOPHIL % 0.4 % (0.0-2.0); EOSINOPHIL # 0.1 TH/MM3 (0-0.4); EOSINOPHIL % 0.5 % (0.0-4.0); HEMO FLAGS DIFF FINAL; LYMPH % 9.5 % (9.0-44.0); LYMPHOCYTE # 1.4 TH/MM3 (1.0-4.8); MEAN CELL VOLUME 97.6 FL (80.0-100.0); MEAN CORPUSCULAR HEMOGLOBIN 31.3 PG (27.0-34.0); MEAN CORPUSCULAR HGB CONC 32.1 % (32.0-36.0); MONO % 8.4 % (0.0-8.0); NEUT % 81.2 % (16.0-70.0); PLATELET COUNT 256 TH/MM3 (150-450); RED BLOOD COUNT 3.59 MIL/MM3 (4.50-5.90); RED CELL DISTRIBUTION WIDTH 14.4 % (11.6-17.2); WHITE BLOOD COUNT 14.4 TH/MM3 (4.0-11.0)
[2016-10-26 19:22] LABS: INTERNATIONAL NORMALIZED RATIO 1.4 RATIO; PROTHROMBIN TIME - PATIENT 15.3 SEC (9.8-11.6)
[2016-10-26] MEDS ORDERED: FURO1TAB62 PO (19:40)
[2016-10-26] MEDS ORDERED: METO25TA3 PO (19:40)
[2016-10-26] MEDS ORDERED: FOLI1TAB4 PO (19:40)
[2016-10-26] MEDS ORDERED: FERR325T PO (19:44)
[2016-10-26] MEDS ORDERED: CYAN1CAP PO (19:51)
[2016-10-26] MEDS ORDERED: D 50CAP PO (19:51)
--- NOTE | 2016-10-26 19:52 | RADRPT ---
EXAM DATE/TIME: 10/26/2016 19:20 [facility] COMPARISON: No previous studies available for comparison. INDICATIONS : Short of Breath MEDICAL HISTORY : Cardiovascular disease. SURGICAL HISTORY : CABG. ENCOUNTER: Initial ACUITY: 1 day PAIN SCORE: 0/10 LOCATION: Bilateral chest FINDINGS: A single view of the chest demonstrates the lungs to be symmetrically aerated without evidence of mas s, infiltrate or effusion. The patient is status post sternotomy. The cardiomediastinal contours are unremarkable. Osseous structures are intact. CONCLUSION: No acute disease. Montez Peter MD on October 26, 2016 at 19:50 Board Certified Radiologist. This report was verified electronically.
[2016-10-26 19:53] LABS: ANION GAP 9 MEQ/L (5-15); BICARBONATE 24.2 MEQ/L (21.0-32.0); BLOOD UREA NITROGEN 16 MG/DL (7-18); CHLORIDE 104 MEQ/L (98-107); GLOMERULAR FILTRATION RATE 62 ML/MIN (>89); POTASSIUM 4.3 MEQ/L (3.5-5.1); SODIUM (NA) 137 MEQ/L (136-145)
[2016-10-26] MEDS ORDERED: CLON0.1T PO ×2 (19:53→19:54)
[2016-10-26 20:08] LABS: DIGOXIN 0.5 NG/ML (0.8-2.0)
[2016-10-26 20:26] LABS: BLOOD, URINE NEG (NEG); GLUCOSE,URINE TRACE mg/dL (NEG); KETONE, URINE NEG (NEG); MUCUS URINE FEW /lpf (OCC); NITRITE,URINE NEG (NEG); PH, URINE 5.5 (5.0-8.5); URINE COLOR YELLOW (YELLW/STRAW)
[2016-10-26 20:27] LABS: COMMENT (UR) CULT NOT INDICATED; CULTURE IF INDICATED CULT NOT INDICATED
[2016-10-26] MEDS ORDERED: IOHEXOL 350 MG/ML 10 ML VIAL (for RAD DIAG) IV ONE (20:35)
[2016-10-26] MEDS ORDERED: DILTIAZEM INJ 125 MG in SODIUM CHLORIDE 0.9% INJ 100 ML IV SCH (20:45)
[2016-10-26] MEDS ORDERED: VANCOMYCIN INJ 1,000 MG in SODIUM CHLOR 0.9% 250 ML INJ 250 ML IV ONE (20:45)
[2016-10-26] MEDS ORDERED: PIPERACIL-TAZO 3.375 GM PREMIX 50 ML IV ONE (20:45)
--- NOTE | 2016-10-26 20:45 | RADRPT ---
EXAM DATE/TIME: 10/26/2016 20:26 [facility] COMPARISON: No previous studies available for comparison. INDICATIONS : Short of breath. Post-op total left hip replacement 2 days ago. IV CONTRAST: 74 cc Omnipaque 350 (iohexol) IV RADIATION DOSE: 22.99 CTDIvol (mGy) MEDICAL HISTORY : Cardiovascular disease. Stroke Chronic obstructive pulmonary disease.Umbilical hernia. SURGICAL HISTORY : Umbilical hernia repair. CABG ENCOUNTER: Initial ACUITY: 1 day PAIN SCALE: 0/10 LOCATION: chest TECHNIQUE: Volumetric scanning of the chest was performed using a pulmonary embolism protocol MIP images were re constructed. Using automated exposure control and adjustment of the mA and/or kV according to patien t size, radiation dose was kept as low as reasonably achievable to obtain optimal diagnostic quality images. FINDINGS: PULMONARY ARTERIES: No filling defects are seen in the pulmonary arteries through the segmental level. LUNGS: There some minimal increased density at the posterior lung bases. PLEURAE: There is no pleural thickening or pleural effusion. MEDIASTINUM: There is good visualization of the great vessels of the middle mediastinum. No evidence of mediastin al or hilar adenopathy/mass. Patient is status post sternotomy. MUSCULOSKELETAL: There is a prominent kyphosis of the thoracic spine. There are calcific densities seen along the post erior elements likely related to degenerative change or postoperative change if there's been attempte d fusion. MISCELLANEOUS: The visualized upper abdominal organs demonstrate no acute abnormality. CONCLUSION: 1. No pulmonary embolus. 2. Minimal suspected atelectasis of the posterior lung bases. 3. Prominent kyphosis with chronic calcific density seen in the paraspinous regions around the physical therapy professor ior elements. Montez Peter MD on October 26, 2016 at 20:40 Board Certified Radiologist. This report was verified electronically.
[2016-10-26] MEDS: SODIUM CHLORIDE 0.9% FLUSH 10 ML FLUSH IV FLUSH SCH (21:00)
[2016-10-26] MEDS ORDERED: MORPHINE SULFATE 4 MG/ML INJ IV PRN (21:00)
[2016-10-26] MEDS ORDERED: BISACODYL 10 MG SUPP RECTAL PRN (21:00)
[2016-10-26] MEDS ORDERED: SODIUM CHLORIDE 0.9% FLUSH 10 ML FLUSH IV FLUSH PRN (21:00)
[2016-10-26] MEDS ORDERED: ACETAMINOPHEN 325 MG TAB PO PRN (21:00)
[2016-10-26] MEDS ORDERED: ONDANSETRON HCL 4 MG/2 ML VIAL IVP PRN (21:00)
[2016-10-26] MEDS ORDERED: Vancomycin Consult Pharmacy 1 EA OTHER SCH (21:00)
[2016-10-26] MEDS ORDERED: SODIUM CHLORID 0.9% 500 ML INJ 500 ML IV ONE (21:00)
--- NOTE | 2016-10-26 21:21 | HHI.HP ---
[facility] Tre Potter MD Admission Diagnosis Afib RVR, sepsis, lethargy Diagnoses: (1) Sepsis Diagnosis: Principal (2) Postoperative fever Diagnosis: Principal (3) Atrial fibrillation with RVR Diagnosis: Principal (4) Dehydration Diagnosis: Principal (5) DM (diabetes mellitus) Diagnosis: Principal Travel History International Travel<30 Days: No Contact w/Intl Traveler <30 Da: No Traveled to Known Affected Are: No History of Present Illness This is a 65-year-old male with a PMH of HTN, Anxiety, A. fib, COPD, h/o CVA, DM and s/p Left Hip Arthroplasty by Dr. Anoop Rodrigez on 10/24/16 who was brought to the ER by EMS secondary to fever and lethargy starting today. Per , pt noted to be very lethargic, states he fell asleep while she was feeding him soup. Temp 101.6 this afternoon and noted to have elevated HR. Home Health RN recommended eval in ER. On arrival, noted to be in A-fib w/ RVR , HR 130's, BP 127/82, O2 sat 96% on 2L NC, Temp 99.1. WBC 14.4. Chemistry essentially unremarkable except for GFR 62. Lactic Acid 1.8. BNP 133. Troponin negative. UA negative. CXR with no acute findings. CTA Pulm negative for PE, atelectasis posterior lung bases. S/p Blood Cultures, Vanc/ Zosyn in ER. Also given Cardizem x1 dose, HR now 110's. Per , recently started on Coumadin 2.5mg post-op by Dr. Rodrigez w/ plans for anticoagulation x1 month. INR currently 1.4. Following w/ Office Sweeper, Dr. Reeves in [facility], per , Metoprolol dose recently increased, no other changes to meds. Review of Systems Except as stated in HPI: all other systems reviewed are Neg ROS: 14 point review of systems otherwise negative. Past Family Social History Past Medical History PMH: HTN, Anxiety, A. fib, COPD, h/o CVA, DM and s/p Left Hip Arthroplasty by Dr. Anoop Rodrigez on 10/24/16 Past Surgical History PAST SURGICAL HISTORY: Umbilical Hernia Repair, CABG, Cataract Surgery, Bilateral Total Knee Replacement, Left Hip Arthroplasty 10/24/16 Allergies: Coded Allergies: Penicillin (Verified Allergy, Severe, 10/26/16) Latex (Unverified Allergy, Intermediate, RASH,BLISTERS, 10/26/16) Adhesives (Unverified Adverse Reaction, Intermediate, REMOVES SKIN, ) PT CAN HAVE PAPER TAPE Family History PAST FAMILY HISTORY: Reviewed. No h/o DM or CAD Social History PAST SOCIAL HISTORY: Occasional alcohol. Negative for tobacco or drugs. Physical Exam Vital Signs Vital Signs Date Time Temp Pulse Resp B/P Pulse Ox O2 Delivery O2 Flow Rate FiO2 10/26/16 19:55 115 26 146/73 94 Nasal Cannula 2 10/26/16 19:21 99 26 151/66 93 Nasal Cannula 2 10/26/16 19:00 99.1 120 26 104/72 95 Nasal Cannula 2 10/26/16 18:42 20 96 Room Air 10/26/16 18:40 138 20 127/82 96 Nasal Cannula 2 10/26/16 18:39 20 96 Room Air 10/26/16 18:39 Nasal Cannula 2 10/26/16 18:21 99.5 130 24 164/74 93 Room Air Physical Exam PE: GENERAL: Pleasant middle-aged white male in no acute distress, appears tired/ week. at bedside. HEENT: PERRLA, EOMI. No scleral icterus or conjunctival pallor. No lid lag or facial droop. CARDIOVASCULAR: Irregularly irregular, in A. fib, HR 110's. No obvious murmurs to auscultation. No chest tenderness to palpation. RESPIRATORY: No obvious rhonchi or wheezing. Clear to auscultation. Breath sounds equal bilaterally. GASTROINTESTINAL: Abdomen soft, non-tender, nondistended. BS normal. MUSCULOSKELETAL: Extremities without clubbing, cyanosis, or edema. No obvious deformities. Left hip surgical site intact NEUROLOGICAL: Awake, alert and oriented x4. No focal neurologic deficits. Moving both upper and lower extremities spontaneously. Laboratory Laboratory Tests Test 10/26/16 10/26/16 10/26/16 18:50 18:54 20:00 White Blood Count 14.4 Red Blood Count 3.59 Hemoglobin 11.2 Hematocrit 35.0 Mean Corpuscular Volume 97.6 Mean Corpuscular Hemoglobin 31.3 Mean Corpuscular Hemoglobin 32.1 Concent Red Cell Distribution Width 14.4 Platelet Count 256 Mean Platelet Volume 8.6 Neutrophils (%) (Auto) 81.2 Lymphocytes (%) (Auto) 9.5 Monocytes (%) (Auto) 8.4 Eosinophils (%) (Auto) 0.5 Basophils (%) (Auto) 0.4 Neutrophils # (Auto) 11.7 Lymphocytes # (Auto) 1.4 Monocytes # (Auto) 1.2 Eosinophils # (Auto) 0.1 Basophils # (Auto) 0.1 CBC Comment DIFF FINAL Differential Comment Prothrombin Time 15.3 Prothromb Time International 1.4 Ratio Activated Partial 38.0 Thromboplast Time Sodium Level 137 Potassium Level 4.3 Chloride Level 104 Carbon Dioxide Level 24.2 Anion Gap 9 Blood Urea Nitrogen 16 Creatinine 1.17 Estimat Glomerular Filtration 62 Rate Random Glucose 146 Lactic Acid Level 1.8 Calcium Level 9.1 Troponin I LESS THAN 0.02 B-Type Natriuretic Peptide 133 Digoxin Level 0.5 Blood Gas Puncture Site RT RADIAL Blood Gas Patient Temperature 98.6 Blood Gas HCO3 23 Blood Gas Base Excess -0.7 Blood Gas Oxygen Saturation 92 Arterial Blood pH 7.44 Arterial Blood Partial 34 Pressure CO2 Arterial Blood Partial 71 Pressure O2 Arterial Blood Oxygen Content 14.1 Arterial Blood 0.7 Carboxyhemoglobin Arterial Blood Methemoglobin 0.3 Blood Gas Hemoglobin 10.9 Oxygen Delivery Device NASAL CANNULA Blood Gas Ventilator Setting 3 Urine Color YELLOW Urine Turbidity CLEAR Urine pH 5.5 Urine Specific [place] 1.017 Urine Protein 30 Urine Glucose (UA) TRACE Urine Ketones NEG Urine Occult Blood NEG Urine Nitrite NEG Urine Bilirubin NEG Urine Urobilinogen LESS THAN 2.0 Urine Leukocyte Esterase NEG Urine RBC LESS THAN 1 Urine WBC LESS THAN 1 Urine Mucus FEW Microscopic Urinalysis Comment CULT NOT INDICATED Date/Time Procedure Status Source Growth 10/26/16 18:55 Aerobic Blood Culture Received Blood Peripheral Pending 10/26/16 18:55 Anaerobic Blood Culture Received Blood Peripheral Pending Result Diagram: 10/26/16184910/26/161849 Assessment and Plan Problem List: (1) Sepsis ICD Code: A41.9 Status: Acute (2) Postoperative fever ICD Code: R50.82 Status: Acute (3) Atrial fibrillation with RVR ICD Code: I48.91 Status: Acute (4) Dehydration ICD Code: E86.0 Status: Acute (5) DM (diabetes mellitus) ICD Code: E11.9 Status: Acute Assessment and Plan A/P: 1. Sepsis: Temp 99.1, 101.6 at home, WBC 14.5, HR 120's, Source-unclear, CXR w / no acute findings, CTA Pulm negative for PE, possible atelectasis at bases, images reviewed by me. U/a negative for UTI. S/p Blood Cultures, Vanc/Zosyn in ER, continue w/ IV Abx, follow up cultures. 2. Post-Op Fever: S/p Left Hip Arthroplasty by Dr. Anoop Rodrigez 10/24/16, now w/ fever/chills, source unclear. CTA Pulm negative for PE as above, ? atelectasis at bases, encourage incentive spirometry. Monitor closely. 3. Afib w/ RVR: h/o A-fib, found to be in A-fib w/ RVR upon arrival, HR 130's , s/p Cardizem x1 dose, currently HR 110's. Was to start Cardizem gtt in ER, however will hold for now in light of borderline BP and Sepsis to avoid hypotension. Resume home Digoxin, IVF for hydration, Metoprolol w/ parameters. Follows w/ Office Sweeper in [facility], plan for outpatient follow up. 4. Dehydration: GFR 62. BUN/Creatinine normal, U/a negative for UTI. Continue w/ IVF for hydration. Repeat labs in am. 5. DM: Hold Metformin in light of sepsis. Sliding scale w/ Accu-Cheks. 6. DVT Prophylaxis: On Coumadin. INR subtherapeutic at 1.4. Restart Coumadin , repeat INR in am. 7. Social work for d/c planning as needed. 8. Case discussed w/ ER physician at length. Physician Certification 2 Midnight Certification Type: Admission for Inpatient Services Order for Inpatient Services The services are ordered in accordance with Medicare regulations or non- Medicare payer requirements, as applicable. In the case of services not specified as inpatient-only, they are appropriately provided as inpatient services in accordance with the 2-midnight benchmark. Estimated LOS (days): 2 days is the estimated time the patient will need to remain in the hospital, assuming treatment plan goals are met and no additional complications. Post-Hospital Plan: Not yet determined Problem Qualifiers (1) Sepsis: Qualified Code: A41.9 - Sepsis, due to unspecified organism Elmira Garrison MD October 26, 2016 21:21
[2016-10-26] MEDS ORDERED: DEXTROSE 50% IN WATER 50 ML VIAL(D50) IV PRN (21:30)
[2016-10-26] MEDS ORDERED: GLUCAGON 1 MG/ML VIAL OTHER PRN (21:30)
[2016-10-26] MEDS ORDERED: DILTIAZEM INJ 125 MG in SODIUM CHLORIDE 0.9% INJ 100 ML IV PRN (21:45)
[2016-10-26] MEDS ORDERED: VANCOMYCIN 1,000 MG/NS 250 ML IV ONE ×2 (22:30)
[2016-10-26] MEDS: SODIUM CHLOR 0.9% 1000 ML INJ 1,000 ML IV SCH (23:01)
[2016-10-26] MEDS: ACETAMINOPHEN/HYDROcodone 325 MG/5 MG TAB PO PRN (23:11)
[2016-10-27] VITALS (20 sets, daily range): BP systolic 131–157; BP diastolic 71–83; PULSE 82–111; RESP 16–20; TEMP 98.1–99; O2SAT 95–97
[2016-10-27] MEDS: ACETAMINOPHEN/HYDROcodone 325 MG/5 MG TAB PO PRN ×4 (03:30→19:41)
[2016-10-27] MEDS: SODIUM CHLOR 0.9% 1000 ML INJ 1,000 ML IV SCH ×2 (06:27→16:54)
[2016-10-27] MEDS: INSULIN ASPART SUPPLEMENTAL SCALE SQ SCH ×4 (06:28→19:51)
[2016-10-27 08:18] LABS: AUTOMATED NEUTROPHIL # 7.8 TH/MM3 (1.8-7.7); BASOPHIL # 0.1 TH/MM3 (0-0.2); BASOPHIL % 0.6 % (0.0-2.0); EOSINOPHIL # 0.2 TH/MM3 (0-0.4); HEMATOCRIT 31.3 % (39.0-51.0); HEMO FLAGS DIFF FINAL; LYMPH % 14.8 % (9.0-44.0); LYMPHOCYTE # 1.6 TH/MM3 (1.0-4.8); MEAN CELL VOLUME 96.1 FL (80.0-100.0); MEAN CORPUSCULAR HEMOGLOBIN 31.3 PG (27.0-34.0); MEAN CORPUSCULAR HGB CONC 32.5 % (32.0-36.0); MONO % 8.4 % (0.0-8.0); NEUT % 74.2 % (16.0-70.0); PLATELET COUNT 229 TH/MM3 (150-450); RED BLOOD COUNT 3.26 MIL/MM3 (4.50-5.90); RED CELL DISTRIBUTION WIDTH 13.8 % (11.6-17.2); WHITE BLOOD COUNT 10.5 TH/MM3 (4.0-11.0)
[2016-10-27 08:23] LABS: INTERNATIONAL NORMALIZED RATIO 1.3 RATIO; PROTHROMBIN TIME - PATIENT 14.9 SEC (9.8-11.6)
[2016-10-27 08:34] LABS: ALT (GPT) 30 U/L (12-78); ANION GAP 8 MEQ/L (5-15); AST (GOT) 22 U/L (15-37); BLOOD UREA NITROGEN 12 MG/DL (7-18); CHLORIDE 106 MEQ/L (98-107); GLOMERULAR FILTRATION RATE 88 ML/MIN (>89); POTASSIUM 3.9 MEQ/L (3.5-5.1); SODIUM (NA) 139 MEQ/L (136-145)
[2016-10-27 08:36] LABS: ALKALINE PHOSPHATASE 43 U/L (45-117); TOTAL BILIRUBIN ADULT 0.3 MG/DL (0.2-1.0)
--- NOTE | 2016-10-27 08:51 | HHI.PR ---
Subjective Remarks Follow up afib with RVR, sepsis. Patient is complaining of left hip pain. Otherwise he is feeling a little better today. Denies chest pain. Has chronic dyspnea secondary to COPD, but states that it is no worse than normal. Objective Vitals Vital Signs Date Time Temp Pulse Resp B/P Pulse Ox O2 Delivery O2 Flow Rate FiO2 10/27/16 06:00 94 10/27/16 05:00 96 10/27/16 04:00 Nasal Cannula 2.00 10/27/16 04:00 98 10/27/16 04:00 98.2 98 20 131/71 97 10/27/16 03:00 95 10/27/16 02:00 97 10/27/16 01:00 94 10/27/16 00:00 95 10/27/16 00:00 99.0 95 20 135/76 95 10/26/16 22:21 105 20 125/76 95 Nasal Cannula 2 10/26/16 21:00 83 24 115/57 95 Nasal Cannula 2 10/26/16 19:55 115 26 146/73 94 Nasal Cannula 2 10/26/16 19:21 99 26 151/66 93 Nasal Cannula 2 10/26/16 19:00 99.1 120 26 104/72 95 Nasal Cannula 2 10/26/16 18:42 20 96 Room Air 10/26/16 18:40 138 20 127/82 96 Nasal Cannula 2 10/26/16 18:39 20 96 Room Air 10/26/16 18:39 Nasal Cannula 2 10/26/16 18:21 99.5 130 24 164/74 93 Room Air I/O 10/26/16 10/26/16 10/26/16 10/27/16 10/27/16 10/27/16 07:00 15:00 23:00 07:00 15:00 23:00 Intake Total 1480 ml Output Total 900 ml Balance 580 ml Intake Oral 480 ml IV Total 1000 ml Output Urine Total 900 ml # Bowel Movements 1 Result Diagram: 10/27/1602 10/27/16801 Imaging Last Impressions Chest X-Ray 10/26/161837 Signed Impressions: Service Date/Time: Wednesday, October 26, 2016 19:20 - CONCLUSION: No acute disease. Montez Peter MD CT Angiography 10/26/161837 Signed Impressions: Service Date/Time: Wednesday, October 26, 2016 20:26 - CONCLUSION: 1. No pulmonary embolus. 2. Minimal suspected atelectasis of the posterior lung bases. 3. Prominent kyphosis with chronic calcific density seen in the paraspinous regions around the posterior elements. Montez Peter MD Objective Remarks General: Elderly male in no acute distress. Heart: Irregular rhythm. Lungs: Clear to auscultation bilaterally. No wheezes, rales, or rhonchi. Breathing is nonlabored. Abdomen: Soft, nontender, nondistended. Extremities: No lower extremity edema. Left leg in an immobilizer splint. Psych: Alert and oriented. Procedures None Urinary Catheter: No Vascular Central Line Catheter: No A/P Problem List: (1) Sepsis ICD Code: A41.9 Status: Acute (2) Postoperative fever ICD Code: R50.82 Status: Acute (3) Atrial fibrillation with RVR ICD Code: I48.91 Status: Acute (4) Dehydration ICD Code: E86.0 Status: Acute (5) DM (diabetes mellitus) ICD Code: E11.9 Status: Acute Assessment and Plan 1. Sepsis: Patient presented with fever, leukocytosis, tachycardia. Source is uncertain, but possibly related to left hip surgery. Continue IV antibiotics. Follow blood cultures. 2. Postoperative fever: Status post left hip arthroplasty on 10/24/16. Developed fever, chills, lethargy following discharge home. Shortness of breath is at baseline. Continue incentive spirometry. Continue antibiotics. 3. Atrial fibrillation with RVR: Patient received IV Cardizem 1 in the ER. Continue digoxin, metoprolol. Heart rate in the 90s this morning. 4. Dehydration: Improved. Cautious IV fluid hydration. Monitor labs. 5. Diabetes mellitus: Metformin on hold. Monitor Accu-Cheks and cover with sliding scale insulin. 6. DVT prophylaxis: Coumadin. INR is subtherapeutic. Problem Qualifiers (1) Sepsis: Qualified Code: A41.9 - Sepsis, due to unspecified organism Tera Boo MD October 27, 2016 08:51
[2016-10-27] MEDS ORDERED: CEFEPIME INJ 1,000 MG in SODIUM CHLORIDE 0.9% INJ 100 ML IV SCH (09:00)
[2016-10-27] MEDS: DIGOXIN 0.125 MG TAB PO SCH (09:32)
[2016-10-27] MEDS: SODIUM CHLORIDE 0.9% FLUSH 10 ML FLUSH IV FLUSH SCH ×2 (09:32→19:41)
[2016-10-27] MEDS: CEFEPIME 2000 MG/NS 100 ML IV SCH ×2 (09:32)
[2016-10-27] MEDS: BUDESONIDE-FORMOTEROL 160/4.5 MCG INHALER INH SCH ×2 (09:33→19:46)
--- NOTE | 2016-10-27 09:38 | RADRPT ---
EXAM DATE/TIME: 10/27/2016 09:14 [facility] COMPARISON: No previous studies available for comparison. INDICATIONS : Fever and increased left hip pain 4 days post op left hip replacement. MEDICAL HISTORY : None. SURGICAL HISTORY : left hip replacement ENCOUNTER: Initial ACUITY: 4 - 6 days PAIN SCORE: 8/10 LOCATION: Left hip FINDINGS: Bipolar hemiarthroplasty is noted position. No fracture or dislocation. Femoral artery and iliac gisselle ry calcifications are noted. Surgical clips overlie the left upper leg. CONCLUSION: Satisfactory appearance left hip arthroplasty. Raymundo Nelson MD on October 27, 2016 at 9:35 Board Certified Radiologist. This report was verified electronically.
--- NOTE | 2016-10-27 11:12 | PD.ORT.PN ---
Subjective Post Op Day #: 3 Subjective Remarks pain in hip tolerable. came to ER due to increased HR and temp at home of 101.9. Objective Vitals Vital Signs Date Time Temp Pulse Resp B/P Pulse Ox O2 Delivery O2 Flow Rate FiO2 10/27/16 09:27 98.7 108 16 134/74 96 10/27/16 06:00 94 10/27/16 05:00 96 10/27/16 04:00 Nasal Cannula 2.00 10/27/16 04:00 98 10/27/16 04:00 98.2 98 20 131/71 97 10/27/16 03:00 95 10/27/16 02:00 97 10/27/16 01:00 94 10/27/16 00:00 95 10/27/16 00:00 99.0 95 20 135/76 95 10/26/16 22:21 105 20 125/76 95 Nasal Cannula 2 10/26/16 21:00 83 24 115/57 95 Nasal Cannula 2 10/26/16 19:55 115 26 146/73 94 Nasal Cannula 2 10/26/16 19:21 99 26 151/66 93 Nasal Cannula 2 10/26/16 19:00 99.1 120 26 104/72 95 Nasal Cannula 2 10/26/16 18:42 20 96 Room Air 10/26/16 18:40 138 20 127/82 96 Nasal Cannula 2 10/26/16 18:39 20 96 Room Air 10/26/16 18:39 Nasal Cannula 2 10/26/16 18:21 99.5 130 24 164/74 93 Room Air I/O 10/26/16 10/26/16 10/26/16 10/27/16 10/27/16 10/27/16 07:00 15:00 23:00 07:00 15:00 23:00 Intake Total 1480 ml Output Total 900 ml Balance 580 ml Intake Oral 480 ml IV Total 1000 ml Output Urine Total 900 ml # Bowel Movements 1 Result Diagram: 10/27/16 0810/27/16 08 Other Results Laboratory Tests Test 10/26/16 10/27/16 18:50 08:02 Prothrombin Time 15.3 SEC 14.9 SEC (9.8-11.6) (9.8-11.6) Prothromb Time International 1.4 RATIO 1.3 RATIO Ratio Imaging Last 24 hours Impressions Hip and Pelvis X-Ray 10/27/16 0000 Signed Impressions: Service Date/Time: Thursday, October 27, 2016 09:14 - CONCLUSION: Satisfactory appearance left hip arthroplasty. Raymundo Nelson MD Chest X-Ray 10/26/168 Signed Impressions: Service Date/Time: Wednesday, October 26, 2016 19:20 - CONCLUSION: No acute disease. Montez Peter MD CT Angiography 10/26/161837 Signed Impressions: Service Date/Time: Wednesday, October 26, 2016 20:26 - CONCLUSION: 1. No pulmonary embolus. 2. Minimal suspected atelectasis of the posterior lung bases. 3. Prominent kyphosis with chronic calcific density seen in the paraspinous regions around the posterior elements. Montez Peter MD Objective Remarks in bed, nad, nasal canula in place L hip incision no erythema, no drainage, mild ecchymosis neg homans nvi Assessment & Plan Ortho Post Op Day #: 3 Problem List: Assessment and Plan s/p L TARIQ posterior approach a-fib, elevated temp, increased HR while at home CT neg for PE UA neg CXR mild atelectasis incision no erythema, no drainage, no obvious sign of infection cardiology following fever of unknown origin - blood cultures pending Herson West October 27, 2016 11:12
[2016-10-27] MEDS: VANCOMYCIN INJ 1,250 MG in SODIUM CHLOR 0.9% 250 ML INJ 250 ML IV SCH (13:59)
[2016-10-27] MEDS: WARFARIN SOD 2.5 MG TAB PO SCH (16:54)
--- NOTE | 2016-10-27 17:00 | EKG ---
Date Performed: 10/26/2016 Time Performed: 18:39:52 PTAGE: 65 years EKG: ATRIAL FIBRILLATION WITH RAPID VENTRICULAR RESPONSE NONSPECIFIC ST & T-WAVE ABNORMALITY Com pared to PREVIOUS TRACING , the patient is now in atrial fibrillation with rapid ventricular rate ABNORMAL ECG INTERPRETATION BASED ON A DEFAULT AGE OF 39 YEARS PREVIOUS TRACIN08/25/2014 14.51 DOCTOR: Sally Cox Interpretating Date/Time 10/27/2016 16:59:22
[2016-10-27] MEDS: METOPROLOL TARTRATE 25 MG TAB PO SCH (21:05)
[2016-10-28] VITALS (27 sets, daily range): BP systolic 99–157; BP diastolic 60–94; PULSE 59–114; RESP 16–18; TEMP 97.7–98.4; O2SAT 95–99
[2016-10-28] MEDS: ACETAMINOPHEN/HYDROcodone 325 MG/5 MG TAB PO PRN ×6 (00:06→20:26)
[2016-10-28] MEDS: VANCOMYCIN INJ 1,250 MG in SODIUM CHLOR 0.9% 250 ML INJ 250 ML IV SCH ×2 (00:07→13:21)
[2016-10-28] MEDS: SODIUM CHLOR 0.9% 1000 ML INJ 1,000 ML IV SCH ×3 (02:54→20:27)
[2016-10-28] MEDS: INSULIN ASPART SUPPLEMENTAL SCALE SQ SCH ×4 (06:15→20:26)
[2016-10-28] MEDS ORDERED: clonazePAM 1 MG TAB PO PRN (07:30)
[2016-10-28] MEDS ORDERED: DOCUSATE SODIUM 100 MG CAP PO PRN (08:15)
[2016-10-28] MEDS: FERROUS SULFATE 325 MG (65 MG ELEMENTAL IRON) TAB PO SCH ×2 (08:40→20:26)
[2016-10-28] MEDS: AMIODARONE 200 MG TAB PO SCH (08:40)
[2016-10-28] MEDS: DIGOXIN 0.125 MG TAB PO SCH (08:40)
[2016-10-28] MEDS: LORATADINE 10 MG TAB PO SCH (08:40)
[2016-10-28] MEDS: SODIUM CHLORIDE 0.9% FLUSH 10 ML FLUSH IV FLUSH SCH ×2 (08:40→20:23)
[2016-10-28] MEDS: CEFEPIME 2000 MG/NS 100 ML IV SCH ×2 (08:41)
[2016-10-28] MEDS: BUDESONIDE-FORMOTEROL 160/4.5 MCG INHALER INH SCH ×2 (09:00→20:23)
--- NOTE | 2016-10-28 10:20 | HHI.PR ---
Subjective Remarks Follow up sepsis, hip pain. Patient is very tired today. Still having pain in the left hip. Dyspnea is unchanged from baseline. Patient's is concerned, stating "this is not like him" to be so lethargic/tired. Objective Vitals Vital Signs Date Time Temp Pulse Resp B/P Pulse Ox O2 Delivery O2 Flow Rate FiO2 10/28/16 08:30 97 Nasal Cannula 2.00 10/28/16 08:30 97.7 89 18 99/60 97 10/28/16 07:01 82 10/28/16 06:00 85 10/28/16 05:00 88 10/28/16 04:00 98.2 84 18 146/86 99 10/28/16 04:00 Nasal Cannula 2.00 10/28/16 04:00 84 10/28/16 03:00 88 10/28/16 02:00 85 10/28/16 01:00 89 10/28/16 00:00 Nasal Cannula 2.00 10/28/16 00:00 98.4 85 18 152/94 96 10/28/16 00:00 85 10/27/16 23:00 82 10/27/16 22:00 89 10/27/16 21:00 95 10/27/16 20:00 98.1 99 20 149/81 95 10/27/16 20:00 Nasal Cannula 2.00 10/27/16 20:00 99 10/27/16 18:01 111 10/27/16 17:41 105 10/27/16 17:00 96 Nasal Cannula 2.00 10/27/16 16:03 96 10/27/16 15:30 95 Nasal Cannula 2.00 10/27/16 15:30 98.8 94 20 157/80 95 10/27/16 15:30 105 10/27/16 14:59 18 10/27/16 13:00 100 10/27/16 12:00 95 10/27/16 12:00 95 Nasal Cannula 2.00 10/27/16 12:00 98.9 107 20 154/83 97 10/27/16 12:00 97 Nasal Cannula 2.00 10/27/16 11:38 98.7 98 18 136/72 95 I/O 10/27/16 10/27/16 10/27/16 10/28/16 10/28/1617 07:00 15:00 23:00 07:00 15:00 23:00 Intake Total 1480 ml 830 ml 1650 ml Output Total 900 ml 1030 ml 1102 ml Balance 580 ml -200 ml 548 ml Intake Oral 480 ml 480 ml 400 ml IV Total 1000 ml 350 ml 1250 ml Output Urine Total 900 ml 1030 ml 1102 ml # Bowel Movements 1 0 0 Result Diagram: 10/27/16 0802 10/28/16 0505 Imaging Last Impressions Hip and Pelvis X-Ray 10/27/16 0000 Signed Impressions: Service Date/Time: Thursday, October 27, 2016 09:14 - CONCLUSION: Satisfactory appearance left hip arthroplasty. Raymundo Nelson MD Chest X-Ray 10/26/161837 Signed Impressions: Service Date/Time: Wednesday, October 26, 2016 19:20 - CONCLUSION: No acute disease. Montez Peter MD CT Angiography 10/26/161837 Signed Impressions: Service Date/Time: Wednesday, October 26, 2016 20:26 - CONCLUSION: 1. No pulmonary embolus. 2. Minimal suspected atelectasis of the posterior lung bases. 3. Prominent kyphosis with chronic calcific density seen in the paraspinous regions around the posterior elements. Montez Peter MD Objective Remarks General: Elderly male in no acute distress. Heart: Irregular rhythm. Lungs: Clear to auscultation bilaterally. No wheezes, rales, or rhonchi. Breathing is nonlabored. Abdomen: Soft, nontender, nondistended. Extremities: No lower extremity edema. Left leg in an immobilizer splint. Psych: Asleep, but awakens and answers questions. Procedures None Urinary Catheter: No Vascular Central Line Catheter: No A/P Problem List: (1) Sepsis ICD Code: A41.9 Status: Acute (2) Postoperative fever ICD Code: R50.82 Status: Acute (3) Atrial fibrillation with RVR ICD Code: I48.91 Status: Acute (4) Dehydration ICD Code: E86.0 Status: Acute (5) DM (diabetes mellitus) ICD Code: E11.9 Status: Acute Assessment and Plan 1. Sepsis: Patient presented with fever, leukocytosis, tachycardia. Source is uncertain, but possibly related to left hip surgery. Continue IV antibiotics. Blood cultures are negative so far. Consult infectious disease. 2. Postoperative fever: Status post left hip arthroplasty on 10/24/16. Developed fever, chills, lethargy following discharge home. Shortness of breath is at baseline. Continue incentive spirometry. Continue antibiotics. 3. Atrial fibrillation with RVR: Patient received IV Cardizem 1 in the ER. Continue digoxin, metoprolol. 4. Dehydration: Improved. Cautious IV fluid hydration. Monitor labs. 5. Diabetes mellitus: Metformin on hold. Monitor Accu-Cheks and cover with sliding scale insulin. 6. DVT prophylaxis: Coumadin. INR is subtherapeutic. Labs are pending today. 7. History of hypertension: Clonidine on hold secondary to low blood pressure. Will also hold lisinopril. Continue metoprolol for rate control. Problem Qualifiers (1) Sepsis: Qualified Code: A41.9 - Sepsis, due to unspecified organism Tera Boo MD October 28, 2016 10:20
[2016-10-28 10:40] LABS: AUTOMATED NEUTROPHIL # 8.8 TH/MM3 (1.8-7.7); BASOPHIL # 0.1 TH/MM3 (0-0.2); BASOPHIL % 0.7 % (0.0-2.0); EOSINOPHIL # 0.3 TH/MM3 (0-0.4); HEMATOCRIT 31.7 % (39.0-51.0); HEMO FLAGS DIFF FINAL; LYMPH % 9.9 % (9.0-44.0); LYMPHOCYTE # 1.1 TH/MM3 (1.0-4.8); MEAN CELL VOLUME 95.4 FL (80.0-100.0); MEAN CORPUSCULAR HEMOGLOBIN 32.2 PG (27.0-34.0); MEAN CORPUSCULAR HGB CONC 33.7 % (32.0-36.0); MONO % 7.3 % (0.0-8.0); NEUT % 79.1 % (16.0-70.0); PLATELET COUNT 286 TH/MM3 (150-450); RED BLOOD COUNT 3.33 MIL/MM3 (4.50-5.90); RED CELL DISTRIBUTION WIDTH 13.5 % (11.6-17.2); WHITE BLOOD COUNT 11.1 TH/MM3 (4.0-11.0)
[2016-10-28 10:48] LABS: INTERNATIONAL NORMALIZED RATIO 1.4 RATIO; PROTHROMBIN TIME - PATIENT 15.4 SEC (9.8-11.6)
[2016-10-28 10:57] LABS: BICARBONATE 24.3 MEQ/L (21.0-32.0); POTASSIUM 3.9 MEQ/L (3.5-5.1)
[2016-10-28] MEDS: FENOFIBRATE 145 MG TAB PO SCH ×2 (11:14→11:24)
[2016-10-28] MEDS: METOPROLOL TARTRATE 25 MG TAB PO SCH ×2 (11:24→20:26)
[2016-10-28] MEDS: CHOLECALCIFEROL (VIT D3) 5000 UNIT CAP PO SCH (13:21)
[2016-10-28] MEDS: FOLIC ACID 1 MG TAB PO SCH (16:23)
[2016-10-28] MEDS: WARFARIN SOD 2.5 MG TAB PO SCH (16:23)
--- NOTE | 2016-10-28 17:00 | PD.ORT.PN ---
Subjective Subjective Remarks pt feeling better denies any chest pain, denies any SOB, denies a headache post op pain involving left hip Objective Vitals Vital Signs Date Time Temp Pulse Resp B/P Pulse Ox O2 Delivery O2 Flow Rate FiO2 10/28/16 15:30 98.1 84 16 135/85 97 10/28/16 15:30 96 Nasal Cannula 2.00 10/28/16 14:01 100 10/28/16 13:00 88 10/28/16 12:01 88 10/28/16 11:30 97.7 94 18 130/77 96 10/28/16 11:30 96 Nasal Cannula 2.00 10/28/16 11:00 87 10/28/16 10:01 96 10/28/16 10:00 20 10/28/16 09:00 88 10/28/16 08:30 97 Nasal Cannula 2.00 10/28/16 08:30 97.7 89 18 99/60 97 10/28/16 08:00 114 10/28/16 07:01 82 10/28/16 06:00 85 10/28/16 05:00 88 10/28/16 04:00 98.2 84 18 146/86 99 10/28/16 04:00 Nasal Cannula 2.00 10/28/16 04:00 84 10/28/16 03:00 88 10/28/16 02:00 85 10/28/16 01:00 89 10/28/16 00:00 Nasal Cannula 2.00 10/28/16 00:00 98.4 85 18 152/94 96 10/28/16 00:00 85 10/27/16 23:00 82 10/27/16 22:00 89 10/27/16 21:00 95 10/27/16 20:00 98.1 99 20 149/81 95 10/27/16 20:00 Nasal Cannula 2.00 10/27/16 20:00 99 10/27/16 18:01 111 10/27/16 17:41 105 10/27/16 17:00 96 Nasal Cannula 2.00 I/O 10/27/16 10/27/16 10/27/16 10/28/16 10/28/16 10/28/16 07:00 15:00 23:00 07:00 15:00 23:00 Intake Total 1480 ml 830 ml 1650 ml Output Total 900 ml 1030 ml 1102 ml Balance 580 ml -200 ml 548 ml Intake Oral 480 ml 480 ml 400 ml IV Total 1000 ml 350 ml 1250 ml Output Urine Total 900 ml 1030 ml 1102 ml # Bowel Movements 1 0 0 Result Diagram: 10/28/16 1031 10/28/16 1031 Other Results Laboratory Tests Test 10/28/16 10:31 Prothrombin Time 15.4 SEC (9.8-11.6) Prothromb Time International 1.4 RATIO Ratio Imaging Last 24 hours Impressions Hip and Pelvis X-Ray 10/27/16 0000 Signed Impressions: Service Date/Time: Thursday, October 27, 2016 09:14 - CONCLUSION: Satisfactory appearance left hip arthroplasty. Raymundo Nelson MD Chest X-Ray 10/26/161837 Signed Impressions: Service Date/Time: Wednesday, October 26, 2016 19:20 - CONCLUSION: No acute disease. Montez Peter MD CT Angiography 10/26/161837 Signed Impressions: Service Date/Time: Wednesday, October 26, 2016 20:26 - CONCLUSION: 1. No pulmonary embolus. 2. Minimal suspected atelectasis of the posterior lung bases. 3. Prominent kyphosis with chronic calcific density seen in the paraspinous regions around the posterior elements. Montez Peter MD Objective Remarks resting in bed comfortably, Veena in room L hip incision no erythema, no drainage, mild ecchymosis neg homans, no calf tenderness nvi Assessment & Plan Assessment and Plan POD # 4 s/p L TARIQ posterior approach came into hospital this weekend with a-fib and RVR CTA neg for PE UA neg CXR mild atelectasis - encouraged incentive spirometry incision no erythema, no drainage, no obvious sign of infection blood cx no growth at 1 day PT-WBAT L hip Anoop Rodrigez MD October 28, 2016 17:00
--- NOTE | 2016-10-28 17:12 | MB ---
cc: MIGUEL A GOODE MD DATE OF CONSULTATION 10/28/[address] Boo. HISTORY OF PRESENT ILLNESS This is a 65-year-old white male who is admitted to the hospital on October 26. The patient presented to emergency department with fever and chills and lethargy and also elevated heart rate. The patient's notes that his son who is taller than he is was unable to get the patient up from the couch because of severe weakness and lethargy and they called 9-1-1. The patient was evaluated in the emergency department and heart rate was 115. Temperature was 99.1 and white count 14.4. He was started on Cardizem drip. A urinalysis was obtained and was unremarkable. Blood cultures were obtained and has no growth in 2 days. Chest x-ray showed no acute disease. The patient had recent left hip replacement and was discharged from the hospital on 10/25. He was admitted on October 24 and was discharged on October 25. During this hospitalization he was without fever. Currently the patient feels very tired. He also had one episode of loose stool yesterday but has had no bowel movement since. He was started on IV antibiotics after evaluation in the emergency department. Since admission on 10/26 he has been without fever. CT scan of the lung showed mild suspected atelectasis of the posterior lung bases. The patient denies headache, cough, shortness of breath, dysuria, back pain. He complains of pain at the surgical operative site at the left hip and laterally there is ecchymosis at the area of the incision and a slight area of a bulge where the area of erythema is located. The patient feels fatigued. The patient's is at bedside and was able to volunteer information as well. They have had no recent travel and have no unusual pets at home. PAST MEDICAL HISTORY 1. Hypertension. 2. Atrial fibrillation. 3. COPD. 4. Anxiety disorder. 5. Diabetes mellitus. 6. History of CVA. 7. Coronary artery bypass graft surgery. 8. Bilateral knee replacement in 2009 and 2014. 9. Left hip arthroplasty. 10 .cataract surgery. 11. Umbilical hernia repair. ALLERGIES PENICILLIN AND LATEX. ADHESIVES. MEDICATIONS 1. Cordarone. 2. Ferrous sulfate. 3. Claritin. 4. Vitamin D3. 5. Colace. 6. Tricor. 7. Klonopin. 8. Coumadin. 9. Lopressor. 10. Vancomycin. 11. Cefepime. 12. Digoxin. 13. Symbicort. 14. [place] 5 p.r.n. 15. Morphine sulfate p.r.n. SOCIAL HISTORY . No tobacco. Occasional beer. No illicit drugs. FAMILY HISTORY Noncontributory. REVIEW OF SYSTEMS Significant for chills and pain in the left hip, otherwise negative on 10-point system review. PHYSICAL EXAMINATION GENERAL: This is a moderately obese male who is in no acute distress. He appears somewhat lethargic. VITAL SIGNS: Include temperature of 97.7, BP 130/77, respirations 18, heart rate 100. HEENT: Head atraumatic. Extraocular movements grossly intact. Pupils reactive to light. No icterus. No conjunctival erythema. Nose without drainage or bleeding. Oropharynx no visible lesions. Moist mucosa. NECK: Supple without adenopathy. No swelling. No tenderness. LUNGS: Clear to auscultation. HEART: Irregular rate and rhythm with distant sounds. No murmurs audible. ABDOMEN: Obese, soft, nontender. RECTAL: Not performed. EXTREMITIES: Left hip has an area with ecchymosis adjacent to the surgical incision. There is a bulge at that area where the ecchymosis is located. Though the incision appears intact. No clubbing or cyanosis or edema. Decreased range of motion of the left leg in patient with difficulty raising the leg off the bed. SKIN: No rash. NEUROLOGIC: Nonfocal. Patient alert and oriented. PSYCHIATRIC: The patient is calm and cooperative. LABORATORY DATA WBC 11.1, platelet count 286, 79% neutrophils, 9% lymphocytes, hemoglobin 10.7. Creatinine 0.8, BUN 16, sodium 138. IMPRESSION 1. Fever and leukocytosis. 2. Probable sepsis. 3. Negative blood cultures and no clear source for sepsis etiology. 4. Status post left hip replacement and possible hematoma at the area near the left hip incision but no evidence of infection at that location. 5. Atelectasis suggested by CT angiography of the lungs. RECOMMENDATIONS 1. Continue vancomycin. 2. Continue cefepime for now. 3. Follow the cultures until completion. 4. Monitor for signs of source of sepsis. Thank you for this consultation. The patient's progress will be followed and further recommendations will be made on followup. Miguel A Goode MD FD/ANGE /3:01 PM /4:47 PM
[2016-10-28] MEDS: PANTOPRAZOLE SOD 40 MG DELAYED RELEASE TAB PO SCH (20:26)
[2016-10-28] MEDS: ATORVASTATIN 80 MG TAB PO SCH (20:26)
[2016-10-29] VITALS (27 sets, daily range): BP systolic 138–189; BP diastolic 66–81; PULSE 57–90; RESP 18–20; TEMP 97.9–98.8; O2SAT 93–97
[2016-10-29] MEDS: VANCOMYCIN INJ 1,250 MG in SODIUM CHLOR 0.9% 250 ML INJ 250 ML IV SCH ×2 (00:36→15:33)
[2016-10-29] MEDS ORDERED: PHARMACY ORDERED LAB ONE ×2 (00:45→12:45)
[2016-10-29] MEDS: ACETAMINOPHEN/HYDROcodone 325 MG/5 MG TAB PO PRN ×3 (03:51→15:30)
[2016-10-29] MEDS: INSULIN ASPART SUPPLEMENTAL SCALE SQ SCH ×4 (06:08→22:29)
--- NOTE | 2016-10-29 07:19 | PD.ORT.PN ---
Subjective Subjective Remarks pt feeling better;no fatigue denies any chest pain, denies any SOB, denies a headache Objective Vitals Vital Signs Date Time Temp Pulse Resp B/P Pulse Ox O2 Delivery O2 Flow Rate FiO2 10/29/16 06:20 62 10/29/16 05:33 66 10/29/16 04:12 Nasal Cannula 2.00 10/29/16 04:00 64 10/29/16 03:00 98.2 66 150/74 96 10/29/16 03:00 63 10/29/16 02:00 58 10/29/16 01:00 58 10/29/16 00:00 60 10/28/16 23:00 Nasal Cannula 2.00 10/28/16 23:00 65 10/28/16 23:00 98.0 59 157/81 96 10/28/16 22:00 64 10/28/16 21:00 62 10/28/16 20:00 62 10/28/16 19:00 98.0 67 152/72 95 10/28/16 19:00 66 10/28/16 19:00 Nasal Cannula 2.00 10/28/16 18:01 64 10/28/16 17:01 66 10/28/16 16:00 100 10/28/16 15:30 98.1 84 16 135/85 97 10/28/16 15:30 96 Nasal Cannula 2.00 10/28/16 15:00 102 10/28/16 15:00 18 10/28/16 14:01 100 10/28/16 13:00 88 10/28/16 12:01 88 10/28/16 11:30 97.7 94 18 130/77 96 10/28/16 11:30 96 Nasal Cannula 2.00 10/28/16 11:00 87 10/28/16 10:01 96 10/28/16 09:00 88 10/28/16 08:30 97 Nasal Cannula 2.00 10/28/16 08:30 97.7 89 18 99/60 97 10/28/16 08:00 114 I/O 10/28/16 10/28/16 10/28/16 10/29/16 10/29/16 10/29/16 07:00 15:00 23:00 07:00 15:00 23:00 Intake Total 1650 ml 2706 ml 240 ml Output Total 1102 ml 510 ml 200 ml Balance 548 ml 2196 ml 40 ml Intake Oral 400 ml 840 ml 240 ml IV Total 1250 ml 1866 ml Output Urine Total 1102 ml 510 ml 200 ml # Voids 3 3 # Bowel Movements 0 0 Result Diagram: 10/28/16 1031 10/28/16 1031 Other Results Laboratory Tests Test 10/28/16 10:31 Prothrombin Time 15.4 SEC (9.8-11.6) Prothromb Time International 1.4 RATIO Ratio Imaging Last 24 hours Impressions Hip and Pelvis X-Ray 10/27/16 0000 Signed Impressions: Service Date/Time: Thursday, October 27, 2016 09:14 - CONCLUSION: Satisfactory appearance left hip arthroplasty. Raymundo Nelson MD Chest X-Ray 10/26/161837 Signed Impressions: Service Date/Time: Wednesday, October 26, 2016 19:20 - CONCLUSION: No acute disease. Montez Peter MD CT Angiography 10/26/161837 Signed Impressions: Service Date/Time: Wednesday, October 26, 2016 20:26 - CONCLUSION: 1. No pulmonary embolus. 2. Minimal suspected atelectasis of the posterior lung bases. 3. Prominent kyphosis with chronic calcific density seen in the paraspinous regions around the posterior elements. Montez Peter MD Objective Remarks resting in bed comfortably, L hip incision no erythema, no drainage, mild post-op ecchymosis neg homans, no calf tenderness nvi The "swelling" to L hip is secondary to lipoma that was present pre-op Assessment & Plan Assessment and Plan POD # 5 s/p L TARIQ posterior approach came into hospital this weekend with a-fib and RVR CTA neg for PE UA neg CXR mild atelectasis - encouraged incentive spirometry incision no erythema, no drainage, no obvious sign of infection blood cx no growth at 2 day PT-WBAT L hip EKG this AM NSR,HR 57 If patient medically,probably D/C home tomorrow with [facility] PT/edge banding off bearer stable Anoop Rodrigez MD October 29, 2016 07:18
[2016-10-29] MEDS: CHOLECALCIFEROL (VIT D3) 5000 UNIT CAP PO SCH (08:22)
[2016-10-29] MEDS: LORATADINE 10 MG TAB PO SCH (08:22)
[2016-10-29] MEDS: METOPROLOL TARTRATE 25 MG TAB PO SCH ×2 (08:22→21:42)
[2016-10-29] MEDS: DIGOXIN 0.125 MG TAB PO SCH (08:23)
[2016-10-29] MEDS: AMIODARONE 200 MG TAB PO SCH (08:23)
[2016-10-29] MEDS: SODIUM CHLORIDE 0.9% FLUSH 10 ML FLUSH IV FLUSH SCH ×2 (08:23→21:00)
[2016-10-29] MEDS: CEFEPIME 2000 MG/NS 100 ML IV SCH ×2 (08:23)
[2016-10-29] MEDS: FERROUS SULFATE 325 MG (65 MG ELEMENTAL IRON) TAB PO SCH ×2 (08:23→21:42)
--- NOTE | 2016-10-29 08:37 | HHI.PR ---
Subjective Remarks Follow up sepsis, hip pain. The patient is much more alert today. He is concerned about his , who had to go to the ER this morning due to a fever. Apparently his son, who has cancer, fell last night and spent most of the night in the ER as well. He states that physically he feels better, but he is anxious about his family. No chest pain. Dyspnea is at baseline per patient report. Objective Vitals Vital Signs Date Time Temp Pulse Resp B/P Pulse Ox O2 Delivery O2 Flow Rate FiO2 10/29/16 07:01 57 10/29/16 06:20 62 10/29/16 05:33 66 10/29/16 04:12 Nasal Cannula 2.00 10/29/16 04:00 64 10/29/16 03:00 98.2 66 150/74 96 10/29/16 03:00 63 10/29/16 02:00 58 10/29/16 01:00 58 10/29/16 00:00 60 10/28/16 23:00 Nasal Cannula 2.00 10/28/16 23:00 65 10/28/16 23:00 98.0 59 157/81 96 10/28/16 22:00 64 10/28/16 21:00 62 10/28/16 20:00 62 10/28/16 19:00 98.0 67 152/72 95 10/28/16 19:00 66 10/28/16 19:00 Nasal Cannula 2.00 10/28/16 18:01 64 10/28/16 17:01 66 10/28/16 16:00 100 10/28/16 15:30 98.1 84 16 135/85 97 10/28/16 15:30 96 Nasal Cannula 2.00 10/28/16 15:00 102 10/28/16 15:00 18 10/28/16 14:01 100 10/28/16 13:00 88 10/28/16 12:01 88 10/28/16 11:30 97.7 94 18 130/77 96 10/28/16 11:30 96 Nasal Cannula 2.00 10/28/16 11:00 87 10/28/16 10:01 96 10/28/16 09:00 88 I/O 10/28/16 10/28/16 10/28/16 10/29/16 10/29/1617 07:00 15:00 23:00 07:00 15:00 23:00 Intake Total 1650 ml 2706 ml 240 ml Output Total 1102 ml 510 ml 200 ml Balance 548 ml 2196 ml 40 ml Intake Oral 400 ml 840 ml 240 ml IV Total 1250 ml 1866 ml Output Urine Total 1102 ml 510 ml 200 ml # Voids 3 3 # Bowel Movements 0 0 Result Diagram: 10/28/16 1031 10/28/16 1031 Imaging Last Impressions Hip and Pelvis X-Ray 10/27/16 0000 Signed Impressions: Service Date/Time: Thursday, October 27, 2016 09:14 - CONCLUSION: Satisfactory appearance left hip arthroplasty. Raymundo Nelson MD Chest X-Ray 10/26/161837 Signed Impressions: Service Date/Time: Wednesday, October 26, 2016 19:20 - CONCLUSION: No acute disease. Montez Peter MD CT Angiography 10/26/161837 Signed Impressions: Service Date/Time: Wednesday, October 26, 2016 20:26 - CONCLUSION: 1. No pulmonary embolus. 2. Minimal suspected atelectasis of the posterior lung bases. 3. Prominent kyphosis with chronic calcific density seen in the paraspinous regions around the posterior elements. Montez Peter MD Objective Remarks General: Elderly male in no acute distress. Sitting up in a chair. Heart: Irregular rhythm. Lungs: Clear to auscultation bilaterally. No wheezes, rales, or rhonchi. Breathing is nonlabored. Abdomen: Soft, nontender, nondistended. Extremities: No lower extremity edema. Psych: Alert, oriented. Procedures None Urinary Catheter: No Vascular Central Line Catheter: No A/P Problem List: (1) Sepsis ICD Code: A41.9 Status: Acute (2) Postoperative fever ICD Code: R50.82 Status: Acute (3) Atrial fibrillation with RVR ICD Code: I48.91 Status: Acute (4) Dehydration ICD Code: E86.0 Status: Acute (5) DM (diabetes mellitus) ICD Code: E11.9 Status: Acute Assessment and Plan 1. Sepsis: Patient presented with fever, leukocytosis, tachycardia. Source is uncertain, but possibly related to left hip surgery. Continue IV antibiotics. Blood cultures are negative so far. Consult infectious disease. 2. Postoperative fever: Status post left hip arthroplasty on 10/24/16. Developed fever, chills, lethargy following discharge home. Shortness of breath is at baseline. Continue incentive spirometry. Continue antibiotics. 3. Atrial fibrillation with RVR: Patient received IV Cardizem 1 in the ER. Continue digoxin, metoprolol. 4. Dehydration: Improved. Cautious IV fluid hydration. Monitor labs. 5. Diabetes mellitus: Metformin on hold. Monitor Accu-Cheks and cover with sliding scale insulin. 6. DVT prophylaxis: Coumadin. INR is subtherapeutic. Labs are pending today. 7. History of hypertension: Clonidine on hold secondary to low blood pressure. Resume lisinopril. Continue metoprolol for rate control. Problem Qualifiers (1) Sepsis: Qualified Code: A41.9 - Sepsis, due to unspecified organism Tera Boo MD October 29, 2016 08:37
[2016-10-29] MEDS: BUDESONIDE-FORMOTEROL 160/4.5 MCG INHALER INH SCH ×2 (09:00→21:41)
[2016-10-29] MEDS: LISINOPRIL 20 MG TAB PO SCH ×2 (09:00→11:15)
[2016-10-29] MEDS: ENOXAPARIN SODIUM 40 MG/0.4 ML SYRINGE SQ SCH (11:15)
[2016-10-29 12:38] LABS: AUTOMATED NEUTROPHIL # 7.6 TH/MM3 (1.8-7.7); BASOPHIL # 0.1 TH/MM3 (0-0.2); BASOPHIL % 0.7 % (0.0-2.0); EOSINOPHIL # 0.5 TH/MM3 (0-0.4); EOSINOPHIL % 4.9 % (0.0-4.0); HEMATOCRIT 31.4 % (39.0-51.0); HEMO FLAGS DIFF FINAL; LYMPH % 12.1 % (9.0-44.0); LYMPHOCYTE # 1.2 TH/MM3 (1.0-4.8); MEAN CELL VOLUME 96.3 FL (80.0-100.0); MEAN CORPUSCULAR HEMOGLOBIN 32.3 PG (27.0-34.0); MEAN CORPUSCULAR HGB CONC 33.5 % (32.0-36.0); MONO % 6.8 % (0.0-8.0); NEUT % 75.5 % (16.0-70.0); PLATELET COUNT 362 TH/MM3 (150-450); RED BLOOD COUNT 3.26 MIL/MM3 (4.50-5.90); RED CELL DISTRIBUTION WIDTH 13.8 % (11.6-17.2)
[2016-10-29 12:45] LABS: INTERNATIONAL NORMALIZED RATIO 1.4 RATIO; PROTHROMBIN TIME - PATIENT 15.4 SEC (9.8-11.6)
[2016-10-29 13:00] LABS: BICARBONATE 23.8 MEQ/L (21.0-32.0); POTASSIUM 4.3 MEQ/L (3.5-5.1)
--- NOTE | 2016-10-29 14:30 | HHI.IDPN ---
Note Infectious Disease Note Patient feels okay. No chills. No cough or SOB. Afebrile. No significant pain in the left hip. Feels more energetic. Blood cultures have no growth. PAST MEDICAL HISTORY 1. Hypertension. 2. Atrial fibrillation. 3. COPD. 4. Anxiety disorder. 5. Diabetes mellitus. 6. History of CVA. 7. Coronary artery bypass graft surgery. 8. Bilateral knee replacement in 2009 and 2014. 9. Left hip arthroplasty. 10 .cataract surgery. 11. Umbilical hernia repair. ALLERGIES PENICILLIN AND LATEX. ADHESIVES. Current Medications Medications (Trade) Dose Ordered Sig/[place] Route PRN Reason Start Time Stop Time Status Last Admin Dose Admin Pharmacy Profile Note 0 ml @ 0 mls/hr UNSCH OTHER 10/26/16 21:00 Sodium Chloride (NS 1000 ml Inj) 1,000 ml @ 100 mls/hr Q10H IV 10/26/16 20:54 10/28/16 20:27 Sodium Chloride (NS Flush) 2 ml UNSCH PRN IV FLUSH FLUSH AFTER USING IV ACCESS 10/26/16 21:00 Sodium Chloride (NS Flush) 2 ml BID IV FLUSH 10/26/16 21:00 10/29/16 08:23 Ondansetron HCl (Zofran Inj) 4 mg Q6H PRN IVP NAUSEA OR VOMITING 10/26/16 21:00 Bisacodyl (Dulcolax Supp) 10 mg DAILY PRN RECTAL CONSTIPATION 10/26/16 21:00 Acetaminophen (Tylenol) 650 mg Q6H PRN PO FEVER/PAIN SCALE 1 TO 2 10/26/16 21:00 Acetaminophen/ Hydrocodone Bitart ([place] 5-325 Mg) 1 tab Q4H PRN PO PAIN SCALE 3 TO 5 10/26/16 21:00 10/29/16 11:14 Morphine Sulfate (Morphine Inj) 2 mg Q3H PRN IV Pain 6-10 10/26/16 21:00 10/27/16 19:41 Dextrose (D50w (Vial) Inj) 50 ml UNSCH PRN IV HYPOGLYCEMIA-SEE COMMENTS 10/26/16 21:30 Glucagon 1 mg 1 mg UNSCH PRN OTHER HYPOGLYCEMIA-SEE COMMENTS 10/26/16 21:30 Diltiazem HCl/ Sodium Chloride (Cardizem Inj/NS Inj) 125 ml @ 0 mls/hr TITRATE PRN IV HR >130 10/26/16 21:45 Warfarin Sodium (Coumadin) 2.5 mg DAILY@16 PO 10/27/16 16:00 10/28/16 16:23 Digoxin (Lanoxin) 0.125 mg DAILY PO 10/27/16 09:00 10/29/16 08:23 Budesonide/ Formoterol Fumarate 2 puff 2 puff BID INH 10/27/16 09:00 10/29/16 09:00 Cefepime HCl 2000 mg/Sodium Chloride 100 ml @ 200 mls/hr Q24H IV 10/27/16 09:00 10/29/16 08:23 Vancomycin HCl/ Sodium Chloride (Vancomycin Inj/ NS 250 ml Inj) 262.5 ml @ 250 mls/hr Q12H IV 10/27/16 13:00 10/29/16 00:36 Metoprolol Tartrate (Lopressor) 25 mg BID PO 10/27/16 21:00 10/29/16 08:22 Amiodarone HCl (Cordarone) 200 mg DAILY PO 10/28/16 09:00 10/29/16 08:23 Atorvastatin Calcium (Lipitor) 80 mg HS PO 10/28/16 21:00 10/28/16 20:26 Clonazepam (KlonoPIN) 1 mg DAILY PRN PO ANXIETY 10/28/16 07:30 Ferrous Sulfate (Ferrous Sulfate) 325 mg BID PO 10/28/16 09:00 10/29/16 08:23 Loratadine (Claritin) 10 mg DAILY PO 10/28/16 09:00 10/29/16 08:22 Pantoprazole Sodium (Protonix) 40 mg HS PO 10/28/16 21:00 10/28/16 20:26 Cholecalciferol (Vitamin D3) 5,000 units DAILY PO 10/28/16 09:00 10/29/16 08:22 Docusate Sodium (Colace) 100 mg Q24H PRN PO CONSTIPATION 10/28/16 08:15 Fenofibrate (Tricor) 145 mg HS PO 10/28/16 08:15 10/28/16 11:24 Lisinopril (Prinivil) 40 mg DAILY PO 10/28/16 09:00 10/29/16 09:00 Enoxaparin Sodium (Lovenox Inj) 40 mg Q24H SQ 10/29/16 09:00 10/29/16 11:15 OBJECTIVE: Vital Signs Date Time Temp Pulse Resp B/P Pulse Ox O2 Delivery O2 Flow Rate FiO2 10/29/16 13:01 64 10/29/16 12:00 66 10/29/16 11:15 97 Nasal Cannula 2.00 10/29/16 11:15 98.2 65 18 153/77 95 10/29/16 11:00 64 10/29/16 10:01 66 10/29/16 09:00 62 10/29/16 08:30 97 Nasal Cannula 2.00 10/29/16 08:30 97.9 59 20 189/73 97 10/29/16 08:00 60 10/29/16 07:01 57 10/29/16 06:20 62 10/29/16 05:33 66 10/29/16 04:12 Nasal Cannula 2.00 10/29/16 04:00 64 10/29/16 03:00 98.2 66 150/74 96 10/29/16 03:00 63 10/29/16 02:00 58 10/29/16 01:00 58 10/29/16 00:00 60 10/28/16 23:00 Nasal Cannula 2.00 10/28/16 23:00 65 10/28/16 23:00 98.0 59 157/81 96 10/28/16 22:00 64 10/28/16 21:00 62 10/28/16 20:00 62 10/28/16 19:00 98.0 67 152/72 95 10/28/16 19:00 66 10/28/16 19:00 Nasal Cannula 2.00 10/28/16 18:01 64 10/28/16 17:01 66 10/28/16 16:00 100 10/28/16 15:30 98.1 84 16 135/85 97 10/28/16 15:30 96 Nasal Cannula 2.00 10/28/16 15:00 102 10/28/16 15:00 18 10/28/16 10/28/16 10/29/16 14:59 22:59 06:59 Intake Total 2706 ml 240 ml Output Total 510 ml 200 ml Balance 2196 ml 40 ml Intake Oral 840 ml 240 ml IV Total 1866 ml Output Urine Total 510 ml 200 ml # Voids 3 3 # Bowel Movements 0 Laboratory Tests Test 10/28/16 10/29/16 10:31 12:15 White Blood Count 11.1 TH/MM3 10.0 TH/MM3 Red Blood Count 3.33 MIL/MM3 3.26 MIL/MM3 Hemoglobin 10.7 GM/DL 10.5 GM/DL Hematocrit 31.7 % 31.4 % Mean Corpuscular Volume 95.4 FL 96.3 FL Mean Corpuscular Hemoglobin 32.2 PG 32.3 PG Mean Corpuscular Hemoglobin 33.7 % 33.5 % Concent Red Cell Distribution Width 13.5 % 13.8 % Platelet Count 286 TH/MM3 362 TH/MM3 Mean Platelet Volume 8.4 FL 7.9 FL Neutrophils (%) (Auto) 79.1 % 75.5 % Lymphocytes (%) (Auto) 9.9 % 12.1 % Monocytes (%) (Auto) 7.3 % 6.8 % Eosinophils (%) (Auto) 3.0 % 4.9 % Basophils (%) (Auto) 0.7 % 0.7 % Neutrophils # (Auto) 8.8 TH/MM3 7.6 TH/MM3 Lymphocytes # (Auto) 1.1 TH/MM3 1.2 TH/MM3 Monocytes # (Auto) 0.8 TH/MM3 0.7 TH/MM3 Eosinophils # (Auto) 0.3 TH/MM3 0.5 TH/MM3 Basophils # (Auto) 0.1 TH/MM3 0.1 TH/MM3 CBC Comment DIFF FINAL DIFF FINAL Differential Comment Laboratory Tests Test 10/28/16 10/28/16 10/29/16 05:05 10:31 12:15 Creatinine 0.79 MG/DL 0.88 MG/DL 1.00 MG/DL Estimat Glomerular Filtration 98 ML/MIN 87 ML/MIN 75 ML/MIN Rate Sodium Level 138 MEQ/L 140 MEQ/L Potassium Level 3.9 MEQ/L 4.3 MEQ/L Chloride Level 106 MEQ/L 108 MEQ/L Carbon Dioxide Level 24.3 MEQ/L 23.8 MEQ/L Anion Gap 8 MEQ/L 8 MEQ/L Blood Urea Nitrogen 16 MG/DL 18 MG/DL Random Glucose 190 MG/DL 127 MG/DL Calcium Level 8.6 MG/DL 8.7 MG/DL Microbiology Date/Time Procedure Status Source Growth 10/26/16 18:50 Aerobic Blood Culture - Preliminary Resulted Blood Peripheral NO GROWTH IN 3 DAYS 10/26/16 18:50 Anaerobic Blood Culture - Preliminary Resulted Blood Peripheral NO GROWTH IN 3 DAYS 10/26/16 18:55 Aerobic Blood Culture - Preliminary Resulted Blood Peripheral NO GROWTH IN 3 DAYS 10/26/16 18:55 Anaerobic Blood Culture - Preliminary Resulted Blood Peripheral NO GROWTH IN 3 DAYS IMAGING: Hip and Pelvis X-Ray 10/27/16 0000 Signed Impressions: Service Date/Time: Thursday, October 27, 2016 09:14 - CONCLUSION: Satisfactory appearance left hip arthroplasty. Raymundo Nelson MD Chest X-Ray 10/26/161837 Signed Impressions: Service Date/Time: Wednesday, October 26, 2016 19:20 - CONCLUSION: No acute disease. Montez Peter MD CT Angiography [id number]/26/161837 Signed Impressions: Service Date/Time: Wednesday, October 26, 2016 20:26 - CONCLUSION: 1. No pulmonary embolus. 2. Minimal suspected atelectasis of the posterior lung bases. 3. Prominent kyphosis with chronic calcific density seen in the paraspinous regions around the posterior elements. Montez Peter MD PHYSICAL EXAMINATION GENERAL: No acute distress. Awake and alert. HEENT: No icterus. No conjunctival erythema. Oropharynx no visible lesions. Moist mucosa. NECK: Supple without adenopathy. No swelling. No tenderness. LUNGS: Clear to auscultation. HEART: Regular rate and rhythm with distant sounds. No murmurs audible. ABDOMEN: Obese, soft, nontender. EXTREMITIES: Left hip has an area with ecchymosis adjacent to the surgical incision. There is a bulge at that area where the ecchymosis is located. The incision appears intact. No clubbing or cyanosis or edema. SKIN: No rash. NEUROLOGIC: Nonfocal. PSYCHIATRIC: The patient is calm and cooperative. IMPRESSION 1. Fever and leukocytosis. No clear evidence of infection. 2. Probable sepsis. 3. Negative blood cultures and no clear source for sepsis etiology. 4. Status post left hip replacement and possible hematoma at the area near the left hip incision but no evidence of infection at that location. 5. Atelectasis suggested by CT angiography of the lungs. RECOMMENDATIONS 1. Stop vancomycin. 2. Stop cefepime.. 3. Monitor temp. 4. Okay to discharge tomorrow if no fever. Chencho Goode MD October 29, 2016 14:30
[2016-10-29] MEDS: WARFARIN SOD 2.5 MG TAB PO SCH (15:31)
[2016-10-29] MEDS: SODIUM CHLOR 0.9% 1000 ML INJ 1,000 ML IV SCH ×2 (18:54→21:41)
[2016-10-29] MEDS: FOLIC ACID 1 MG TAB PO SCH (19:32)
[2016-10-29] MEDS: PANTOPRAZOLE SOD 40 MG DELAYED RELEASE TAB PO SCH (21:42)
[2016-10-29] MEDS: ATORVASTATIN 80 MG TAB PO SCH (21:42)
[2016-10-29] MEDS: FENOFIBRATE 145 MG TAB PO SCH (21:42)
[2016-10-30] VITALS (17 sets, daily range): BP systolic 156–176; BP diastolic 76–81; PULSE 56–90; RESP 16–18; TEMP 98.3–98.7; O2SAT 95–97
[2016-10-30] MEDS: ACETAMINOPHEN/HYDROcodone 325 MG/5 MG TAB PO PRN ×3 (00:03→10:55)
[2016-10-30] MEDS: VANCOMYCIN INJ 1,250 MG in SODIUM CHLOR 0.9% 250 ML INJ 250 ML IV SCH (01:17)
[2016-10-30] MEDS: SODIUM CHLOR 0.9% 1000 ML INJ 1,000 ML IV SCH (04:54)
[2016-10-30] MEDS: INSULIN ASPART SUPPLEMENTAL SCALE SQ SCH ×2 (06:10→11:00)
[2016-10-30 06:21] LABS: AUTOMATED NEUTROPHIL # 6.4 TH/MM3 (1.8-7.7); BASOPHIL # 0.1 TH/MM3 (0-0.2); BASOPHIL % 0.6 % (0.0-2.0); EOSINOPHIL # 0.5 TH/MM3 (0-0.4); EOSINOPHIL % 5.4 % (0.0-4.0); HEMATOCRIT 32.5 % (39.0-51.0); HEMO FLAGS DIFF FINAL; LYMPH % 13.7 % (9.0-44.0); LYMPHOCYTE # 1.2 TH/MM3 (1.0-4.8); MEAN CELL VOLUME 95.9 FL (80.0-100.0); MEAN CORPUSCULAR HEMOGLOBIN 31.7 PG (27.0-34.0); MONO % 7.6 % (0.0-8.0); NEUT % 72.7 % (16.0-70.0); PLATELET COUNT 372 TH/MM3 (150-450); RED BLOOD COUNT 3.38 MIL/MM3 (4.50-5.90); RED CELL DISTRIBUTION WIDTH 13.5 % (11.6-17.2); WHITE BLOOD COUNT 8.8 TH/MM3 (4.0-11.0)
[2016-10-30 06:30] LABS: INTERNATIONAL NORMALIZED RATIO 1.4 RATIO; PROTHROMBIN TIME - PATIENT 15.6 SEC (9.8-11.6)
[2016-10-30 06:44] LABS: BICARBONATE 24.1 MEQ/L (21.0-32.0)
--- NOTE | 2016-10-30 07:56 | PD.ORT.PN ---
Subjective Subjective Remarks pt doing better, stiffness involving left hip no chest pain, no SOB Objective Vitals Vital Signs Date Time Temp Pulse Resp B/P Pulse Ox O2 Delivery O2 Flow Rate FiO2 10/30/16 07:01 64 10/30/16 06:00 90 10/30/16 05:00 84 10/30/16 04:00 62 10/30/16 03:00 98.7 63 18 156/76 96 10/30/16 03:00 67 10/30/16 03:00 96 Room Air 10/30/16 02:00 87 10/30/16 01:00 89 10/30/16 00:00 66 10/29/16 23:00 67 10/29/16 23:00 98.8 67 18 165/76 93 10/29/16 23:00 93 Room Air 10/29/16 22:00 90 10/29/16 21:00 86 10/29/16 20:00 96 Room Air 10/29/16 20:00 86 10/29/16 20:00 98.6 67 18 159/81 96 10/29/16 19:00 82 10/29/16 18:01 68 10/29/16 17:01 70 10/29/16 16:32 18 10/29/16 16:00 60 10/29/16 15:30 98.5 65 18 138/66 95 10/29/16 15:30 97 Nasal Cannula 2.00 10/29/16 15:00 64 10/29/16 14:00 76 10/29/16 13:01 64 10/29/16 12:00 66 10/29/16 11:15 97 Nasal Cannula 2.00 10/29/16 11:15 98.2 65 18 153/77 95 10/29/16 11:00 64 10/29/16 10:01 66 10/29/16 09:00 62 10/29/16 08:30 97 Nasal Cannula 2.00 10/29/16 08:30 97.9 59 20 189/73 97 10/29/16 08:00 60 I/O 10/29/16 10/29/16 10/29/16 10/30/16 10/30/16 10/30/16 07:00 15:00 23:00 07:00 15:00 23:00 Intake Total 240 ml 1158 ml 1319 ml Output Total 200 ml 1150 ml 1650 ml Balance 40 ml 8 ml -331 ml Intake Oral 240 ml 480 ml 400 ml IV Total 678 ml 919 ml Output Urine Total 200 ml 1150 ml 1650 ml # Voids 3 4 # Bowel Movements 1 Result Diagram: 10/30/16 0549 10/30/16 0549 Other Results Laboratory Tests Test 10/29/16 10/30/16 12:15 05:49 Prothrombin Time 15.4 SEC 15.6 SEC (9.8-11.6) (9.8-11.6) Prothromb Time International 1.4 RATIO 1.4 RATIO Ratio Imaging Last 24 hours Impressions Hip and Pelvis X-Ray 10/27/16 0000 Signed Impressions: Service Date/Time: Thursday, October 27, 2016 09:14 - CONCLUSION: Satisfactory appearance left hip arthroplasty. Raymundo Nelson MD Chest X-Ray 10/26/161837 Signed Impressions: Service Date/Time: Wednesday, October 26, 2016 19:20 - CONCLUSION: No acute disease. Montez Peter MD CT Angiography 10/26/161837 Signed Impressions: Service Date/Time: Wednesday, October 26, 2016 20:26 - CONCLUSION: 1. No pulmonary embolus. 2. Minimal suspected atelectasis of the posterior lung bases. 3. Prominent kyphosis with chronic calcific density seen in the paraspinous regions around the posterior elements. Montez Peter MD Objective Remarks now in room as well as a patient resting in bed comfortably, L hip incision no erythema, no drainage, post-op ecchymosis neg homans, no calf tenderness +nvi Assessment & Plan Assessment and Plan POD # 6 s/p L TARIQ posterior approach came into hospital post op with a-fib and RVR CTA neg for PE UA neg CXR mild atelectasis - encouraged incentive spirometry incision no erythema, no drainage, no obvious sign of infection blood cx no growth at 2 day PT-WBAT L hip low dose coumadin for dvt prop goal INR 1.8 with recent hip sx orthopedically clear for discharge today with [facility] nursing and PT Beatriz Galindo October 30, 2016 07:56
--- NOTE | 2016-10-30 07:57 | HHI.FF ---
Face to Face Verification Diagnosis: (1) Osteoarthritis of left hip Physical Therapy Gait training, Transfer training, bed to chair Hip: Total hip, Protocol: Left, Posterior hip precautions Right LE Weight Bearing: WB as tolerated Left LE Weight Bearing: WB as tolerated Occupational Therapy Additional Instructions Pt/INR q Friday and , call/text results to Beatriz NICHOLS [phone] Goal INR 1.8 Nursing RN Days per Week: 3 x Week(s): 4 Nursing: Dressing changes (clean incision with alcohol and apply dry sterile dressing ) I have seen patient Markie Aranda on 10/30/16. My clinical findings support the need for the requested home health care services because: Deconditioned w/ increased weakness I certify that my clinical findings support that this patient is homebound because: Post-op weakness Beatriz Galindo October 30, 2016 07:57
[2016-10-30] MEDS: FERROUS SULFATE 325 MG (65 MG ELEMENTAL IRON) TAB PO SCH (08:01)
[2016-10-30] MEDS: DIGOXIN 0.125 MG TAB PO SCH (08:01)
[2016-10-30] MEDS: LORATADINE 10 MG TAB PO SCH (08:02)
[2016-10-30] MEDS: CHOLECALCIFEROL (VIT D3) 5000 UNIT CAP PO SCH (08:02)
[2016-10-30] MEDS: AMIODARONE 200 MG TAB PO SCH (08:02)
[2016-10-30] MEDS: CEFEPIME 2000 MG/NS 100 ML IV SCH ×2 (08:02)
[2016-10-30] MEDS: ENOXAPARIN SODIUM 40 MG/0.4 ML SYRINGE SQ SCH (08:04)
[2016-10-30] MEDS: LISINOPRIL 20 MG TAB PO SCH (08:04)
[2016-10-30] MEDS: SODIUM CHLORIDE 0.9% FLUSH 10 ML FLUSH IV FLUSH SCH (08:05)
[2016-10-30] MEDS: BUDESONIDE-FORMOTEROL 160/4.5 MCG INHALER INH SCH (08:05)
--- NOTE | 2016-10-30 08:51 | HHI.DCPOC ---
Discharge Care Plan Diagnosis: (1) Osteoarthritis of left hip (2) Atrial fibrillation with RVR (3) DM (diabetes mellitus) (4) Postoperative fever Goals to Promote Your Health * To prevent worsening of your condition and complications * To maintain your health at the optimal level Directions to Meet Your Goals Take your medications as prescribed Follow your dietary instruction Follow activity as directed Keep your appointments as scheduled Take your immunizations and boosters as scheduled If your symptoms worsen call your PCP, if no PCP go to Urgent Care Center or Emergency Room Smoking is Dangerous to Your Health. Avoid second hand smoke Call the 24-hour hour crisis hotline for domestic abuse at Tera Boo MD October 30, 2016 08:51
--- NOTE | 2016-10-30 08:59 | HHI.DS ---
Discharge Summary Admission Date October 26, 2016 at 21:05 Discharge Date: October 30, 2016 Admitting Diagnosis Afib RVR, sepsis, lethargy (1) Sepsis ICD Code: A41.9 (2) Postoperative fever ICD Code: R50.82 (3) Atrial fibrillation with RVR ICD Code: I48.91 (4) Dehydration ICD Code: E86.0 (5) DM (diabetes mellitus) ICD Code: E11.9 Procedures None Brief History - From Admission This is a 65-year-old male with a PMH of HTN, Anxiety, A. fib, COPD, h/o CVA, DM and s/p Left Hip Arthroplasty by Dr. Anoop Rodrigez on 10/24/16 who was brought to the ER by EMS secondary to fever and lethargy starting today. Per , pt noted to be very lethargic, states he fell asleep while she was feeding him soup. Temp 101.6 this afternoon and noted to have elevated HR. Home Health RN recommended eval in ER. On arrival, noted to be in A-fib w/ RVR , HR 130's, BP 127/82, O2 sat 96% on 2L NC, Temp 99.1. WBC 14.4. Chemistry essentially unremarkable except for GFR 62. Lactic Acid 1.8. BNP 133. Troponin negative. UA negative. CXR with no acute findings. CTA Pulm negative for PE, atelectasis posterior lung bases. S/p Blood Cultures, Vanc/ Zosyn in ER. Also given Cardizem x1 dose, HR now 110's. Per , recently started on Coumadin 2.5mg post-op by Dr. Rodrigez w/ plans for anticoagulation x1 month. INR currently 1.4. Following w/ [facility], Dr. Reeves in [facility], per , Metoprolol dose recently increased, no other changes to meds. CBC/BMP: 10/30/16 0549 10/30/16 0549 Significant Findings Laboratory Tests Test 10/28/16 10/29/16 10/29/16 10/30/16 10:31 12:15 13:34 05:49 White Blood Count 11.1 TH/MM3 (4.0-11.0) Red Blood Count 3.33 MIL/MM3 3.26 MIL/MM3 3.38 MIL/MM3 (4.50-5.90) (4.50-5.90) (4.50-5.90) Hemoglobin 10.7 GM/DL 10.5 GM/DL 10.7 GM/DL (13.0-17.0) (13.0-17.0) (13.0-17.0) Hematocrit 31.7 % 31.4 % 32.5 % (39.0-51.0) (39.0-51.0) (39.0-51.0) Neutrophils (%) (Auto) 79.1 % 75.5 % 72.7 % (16.0-70.0) (16.0-70.0) (16.0-70.0) Neutrophils # (Auto) 8.8 TH/MM3 (1.8-7.7) Prothrombin Time 15.4 SEC 15.4 SEC 15.6 SEC (9.8-11.6) (9.8-11.6) (9.8-11.6) Estimat Glomerular Filtration 87 ML/MIN (>89) 75 ML/MIN (>89) 84 ML/MIN (>89) Rate Random Glucose 190 MG/DL 127 MG/DL 115 MG/DL (74-106) (74-106) (74-106) Eosinophils (%) (Auto) 4.9 % (0.0-4.0) 5.4 % (0.0-4.0) Eosinophils # (Auto) 0.5 TH/MM3 0.5 TH/MM3 (0-0.4) (0-0.4) Chloride Level 108 MEQ/L (98-107) Vancomycin Level Trough 12.5 MCG/ML (5.0-10.0) Imaging Last Impressions Hip and Pelvis X-Ray 10/27/16 0000 Signed Impressions: Service Date/Time: Thursday, October 27, 2016 09:14 - CONCLUSION: Satisfactory appearance left hip arthroplasty. Raymundo Nelson MD Chest X-Ray 10/26/16 1838 Signed Impressions: Service Date/Time: Wednesday, October 26, 2016 19:20 - CONCLUSION: No acute disease. Montez Peter MD CT Angiography 10/26/16 1838 Signed Impressions: Service Date/Time: Wednesday, October 26, 2016 20:26 - CONCLUSION: 1. No pulmonary embolus. 2. Minimal suspected atelectasis of the posterior lung bases. 3. Prominent kyphosis with chronic calcific density seen in the paraspinous regions around the posterior elements. Montez Peter MD PE at Discharge General: Elderly male in no acute distress. Sitting up in a chair. Heart: Irregular rhythm. Lungs: Clear to auscultation bilaterally. No wheezes, rales, or rhonchi. Breathing is nonlabored. Abdomen: Soft, nontender, nondistended. Extremities: No lower extremity edema. Psych: Alert, oriented. Pt update on day of discharge Patient is still having pain in the left hip, but able to ambulate better now. Denies chest pain, dyspnea. No fever overnight. Hospital Course The patient was admitted for management of a-fib with RVR and probable sepsis. He was given 1 dose of IV diltiazem and rate improved. Orthopedic surgery was consulted. Patient was continued on antibiotics. Surgical wound did not show signs of infection. Infectious disease was consulted. Patient improved clinically throughout the hospitalization. PT was continued. The patient did improve with regards to ambulation and transferring as well. He was felt to be stable for discharge home with home health. Pt Condition on Discharge: Stable Discharge Disposition: Disch w/ Home Health Serv Discharge Time: > 30 minutes Discharge Instructions DIET: Follow Instructions for: Diabetic Diet Activities you can perform: Weight Bearing as [place] Follow up Referrals: Orthopedics - 1 Week with Anoop Rodrigez MD PCP Follow-up - 1 Week Continued Medications: Amiodarone (Pacerone) 200 Mg Tab 200 MG PO DAILY Regulate Heart Beat #60 Ref 0 TAB Amlodipine (Amlodipine) 10 Mg Tab 10 MG PO HS Blood Pressure Management #30 Ref 0 TAB Ascorbic Acid (Vitamin C) 500 Mg Cap 500 MG PO AC DINNER Nutritional Supplement Ref 0 CAP Atorvastatin (Atorvastatin) 80 Mg Tab 80 MG PO HS Cholesterol Management #30 Ref 0 TAB Calcium Polycarbophil (Fiber) 625 Mg Tab 625 MG PO AC DINNER PRN CONSTIPATION Ref 0 TAB Cholecalciferol (D 5000) 5,000 Unit Cap 5000 UNITS PO BID Clonazepam (Clonazepam) 1 Mg Tab 1 MG PO DAILY PRN ANXIETY #60 Ref 0 TAB Clonidine (Clonidine) 0.1 Mg Tab 0.1 MG PO DAILY @ 0800 Blood Pressure Management #60 Ref 0 TAB Clonidine (Clonidine) 0.1 Mg Tab 0.05 MG PO DAILY @ 1500 Blood Pressure Management #60 Ref 0 TAB Clonidine (Clonidine) 0.1 Mg Tab 0.05 MG PO DAILY @ 2000 Blood Pressure Management #60 Ref 0 TAB Cyanocobalamin (B-12) 5,000 Mcg Cap 5000 MCG PO BID Nutritional Supplement #1 Ref 0 BOTTLE Digoxin (Digoxin) 0.125 Mg Tab 0.125 MG PO DAILY Regulate Heart Beat #30 Ref 0 TAB Docusate Sodium (Stool Softener) 100 Mg Cap 100 MG PO DAILY PRN CONSTIPATION Fenofibrate (Fenofibrate) 160 Mg Tab 160 MG PO HS #30 Ref 0 TAB Ferrous Sulfate (Ferrous Sulfate) 325 Mg Tab 325 MG PO BID Nutritional Supplement #30 Ref 0 TAB Fexofenadine (Allyssa Allergy) 180 Mg Tab 180 MG PO DAILY PRN ALLERGIES #30 Ref 0 TAB Fluticasone-Salmeterol Inh (Advair Diskus Inh) 250-50 Mcg/Blist Aer 1 PUFF INH BID Rinse mouth after use. #1 Ref 0 INHALER Folic Acid (Folate) 1 Mg Tab 1 MG PO AC DINNER Nutritional Supplement Ref 0 TAB Furosemide (Furosemide) 40 Mg Tab 40 MG PO DAILY #60 Ref 0 TAB Furosemide (Lasix) 20 Mg Tab 20 MG PO DAILY PRN EDEMA #30 Ref 0 TAB Hydralazine (Hydralazine) 100 Mg Tab 100 MG PO TID Take with meals Blood Pressure Management Ref 0 TAB Hydrocodone-Acetaminophen ([place]) 10-325 Mg Tab 1-2 TAB PO Q6HR PRN PAIN Ref 0 TAB Ipratropium HFA 12.9 GM Inh (Atrovent HFA 12.9 GM Inh) 17 Mcg/Act Aer 2 PUFF INH QID #1 Ref 0 INHALER Ipratropium-Albuterol Neb (Duoneb) 0.5-2.5 Mg/3 Ml Neb 1 NEBULE INH Q8HR NEB PRN SHORTNESS OF BREATH #90 Ref 0 NEBULE Loratadine (Loratadine) 10 Mg Tab 10 MG PO DAILY Allergy Management Ref 0 TAB Metformin (Metformin) 1,000 Mg Tab 1000 MG PO BIDPC With meals Blood Sugar Management #60 Ref 0 TAB Metoprolol Tartrate (Metoprolol Tartrate) 25 Mg Tab 25 MG PO BID #60 Ref 0 TAB Imkycnqg-Odeuotych-Yidnbuwmanuek Opth Drops (Bfsmzzao-Zvmrwpzng-Cjgwennfuajme Opth Drops) 3.5-10,000-0.1 Mg-Units-% Susp 1 DROP EACH EYE TID Infection #1 Ref 0 BOTTLE Pantoprazole (Pantoprazole) 40 Mg Tab 40 MG PO HS Reflux #30 Ref 0 TAB Quinapril (Quinapril) 40 Mg Tab 40 MG PO DAILY #30 Ref 0 TAB Tizanidine (Tizanidine) 4 Mg Tab 8 MG PO TID PRN MUSCLE SPASM Ref 0 TAB Vitamin A (Vitamin A) 8,000 Unit Tab 8000 UNITS PO DAILY Nutritional Supplement Ref 0 TAB Tera Boo MD October 30, 2016 08:59
[2016-10-30] MEDS: METOPROLOL TARTRATE 25 MG TAB PO SCH (11:04)
== END 2016-10-30 14:53 | disposition home health service (06) | DRG 872 ==
LOC: NEPC 18:19 → NEDA 21:05 → HCIS 22:30
PROVIDERS: ADMIT Family Medicine; ATTEND Family Medicine
DX: A41.9 Sepsis, unspecified organism (principal); Z68.41 Body mass index [BMI] 40.0-44.9, adult; I48.91 Unspecified atrial fibrillation; J44.9 Chronic obstructive pulmonary disease, unspecified; I10 Essential (primary) hypertension; E86.0 Dehydration; J98.11 Atelectasis; E11.9 Type 2 diabetes mellitus without complications; Z96.642 Presence of left artificial hip joint; E78.5 Hyperlipidemia, unspecified; R50.82 Postprocedural fever; I25.10 Atherosclerotic heart disease of native coronary artery without angina pectoris; E66.01 Morbid (severe) obesity due to excess calories; F41.9 Anxiety disorder, unspecified; Z79.84 Long term (current) use of oral hypoglycemic drugs; Z86.73 Personal history of transient ischemic attack (TIA), and cerebral infarction without residual deficits; Z95.1 Presence of aortocoronary bypass graft
CPT/HCPCS: 36600; 71010; 71275; 73502; 80048; 80053; 80162; 80202; 81001; 82565; 82805; 82948; 83605; 83880; 84484; 85025; 85610; 85730; 87040; 93005; 94150; 96374; J0692; J1650; J1815; J2270; J2543; J3370; J7030; J7040; J7050; Q9967